=== PATIENT | female | born 1955 | race Caucasian/White ===

== ENCOUNTER 2016-10-03 12:28 | Observation (INO) | payer MEDICARE ==
[~2016-10-03] VITALS: Ht 162.6 cm; Wt 83.9 kg
[2016-10-03 14:00] LABS: ALBUMIN 3.5 g/dL (3.4-5.0); ANION GAP 13.6 mmol/L (8-16); BILIRUBIN - TOTAL 0.16 mg/dL (0.2-1.3); CALCIUM 9.1 mg/dL (8.5-10.1); CARBON DIOXIDE 26.5 mmol/L (21.0-32.0); POTASSIUM - SERUM 5.1 mmol/L (3.5-5.1); PROTEIN - SERUM 7.1 g/dL (6.4-8.2)
[2016-10-03 14:10] LABS: BASOPHILS 0.4 % (0.0-2.0); HEMOGLOBIN 13.8 g/dL (12-16); IMMATURE GRANULOCYTES 0.4 % (0-5); LYMPHOCYTES 31.4 % (15-50); MCH 31.5 pg (26.0-34.0); MCHC 32.1 g/dL (31.0-37.0); MCV 98.2 fL (80.0-100.0); MEAN PLATELET VOLUME 10.3 fL (7.4-10.4); MONOCYTES 7.4 % (2-11); NEUTROPHILS 58.4 % (40-80); PLATELET COUNT 264 10x3/uL (130-400); RBC 4.38 10x6/uL (4.00-5.40); WBC 11.3 10x3/uL (4.8-10.8)
[2016-10-03 20:00] VITALS: BP 124/58
[2016-10-03] MEDS ORDERED: TRAZODONE HCL150 MG PO (20:30)
[2016-10-03] MEDS ORDERED: GLUCOPHAGE1000 MG PO (20:31)
[2016-10-03] MEDS ORDERED: TEMAZEPAM30 MG PO (20:31)
[2016-10-03] MEDS ORDERED: NEURONTIN600 MG PO (20:31)
[2016-10-03] MEDS ORDERED: ULTRAM50 MG PO (20:32)
[2016-10-03] MEDS ORDERED: TANZEUM30 MG/0.5 SC (20:32)
[2016-10-03] MEDS ORDERED: ZOFRAN4 MG PO (20:32)
[2016-10-03 20:38] LABS: CKMB 0.7 U/L (0.0-3.6); CREATINE KINASE 51 UL (21-215); TROPONIN-I 0.031 ng/mL (0.000-0.060)
[2016-10-04] VITALS (7 sets, daily range): BP systolic 89–129; BP diastolic 58–91; Ht 162.6 cm; Wt 83.9 kg
--- NOTE | 2016-10-04 00:02 | NUR ---
RECEIVED PT VIA WHEELCHAIR FROM ER, AWAKE, ALERT, ORIENTED. PTS O2 SAT ON ARRIVAL WAS 86% ON ROOM AIR. I HAVE ADDED O2 VIA NC @ 2LPM WITH HUMIDITY. PT REQUESTED SOMETHING TO EAT, SHE STATED SHE HAS BEEN IN THE ER SINCE 10:00 AM, AND DID NOT ARRIVE TO ME UNTIL 20:15. TURKEY SANDWICH GIVEN, ICE WATER GIVEN, PT DENIES ANY NEEDS. CONTINUE TO MONITOR CLOSELY.
--- NOTE | 2016-10-04 01:27 | NUR ---
PT CALLED WANTING TO KNOW WHERE HER BEDTIME MEDICATIONS WERE, AND I EXPLAINED THAT THERE ARE NO CURRENT ORDERS, AND THAT ALSO SINCE PT IS HERE UNDER OBSERVATION STATUS, MEDICARE WOULD NOT PAY FOR HER MEDICATIONS. PT DENIES ANY NEEDS, BUT IS C/O CHRONIC BACK PAIN. I OFFERED PT AN ICE PACK IN WHICH SHE DENIED. CONTINUE TO MONITOR CLOSELY.
[2016-10-04 02:44] LABS: CKMB 0.6 U/L (0.0-3.6); CREATINE KINASE 55 UL (21-215)
[2016-10-04 08:04] LABS: CKMB 0.6 U/L (0.0-3.6); CREATINE KINASE 65 UL (21-215); TROPONIN-I 0.052 ng/mL (0.000-0.060)
--- NOTE | 2016-10-04 13:00 | NUR ---
ALERT AND ORIENTED X4. OOB WITH PHYSICAL THERAPY. AMBULATES TO DOOR AND BECOMES LITE HEADED. PT ASSIST BACK TO BED. VITALS STABLE. INSTRUCT TO CALL FOR HELP TO PREVENT FALLING. SINUS RHYTHM ON TELEMETRY. CONTINUE PLAN OF CARE. BED LOCKED AND LOW. CALL LIGHT IN REACH. TWO SIDERAILS UP.
[2016-10-04 14:46] LABS: CKMB 0.4 U/L (0.0-3.6); CREATINE KINASE 63 UL (21-215); TROPONIN-I 0.029 ng/mL (0.000-0.060)
--- NOTE | 2016-10-04 17:57 | NUR ---
ALERT AND ORIENTED X4. RESTING IN BED. FAMILY AT BEDSIDE. CONTINUE PAIN MANAGEMENT ORDERED. DENIES SOB. SINUS RHYTHM ON TELEMETRY. NO CHANGE. CONTINUE PLAN OF CARE AND SAFETY PRECAUTIONS. PREPAIR SHIFT CHANGE REPORT.
[2016-10-05] VITALS: BP 127/66
--- NOTE | 2016-10-05 01:08 | NUR ---
PT LYING ON HER LEFT SIDE, RESPIRATIONS EVEN AND UNLABORED. DAUGHTER AT BEDSIDE. HOB 20 DEGREES. CONTINUE TO MONITOR CLOSELY.
[2016-10-05 04:00] VITALS: BP 102/68
[2016-10-05 06:33] LABS: BASOPHILS 0.1 % (0.0-2.0); EOSINOPHILS 3.2 % (0-7); IMMATURE GRANULOCYTES 0.3 % (0-5); LYMPHOCYTES 34.2 % (15-50); MCH 31.4 pg (26.0-34.0); MCHC 33.3 g/dL (31.0-37.0); MEAN PLATELET VOLUME 10.2 fL (7.4-10.4); MONOCYTES 9.3 % (2-11); NEUTROPHILS 52.9 % (40-80); PLATELET COUNT 289 10x3/uL (130-400); RBC 4.78 10x6/uL (4.00-5.40); RDW 12.6 % (11.5-14.5); WBC 9.1 10x3/uL (4.8-10.8)
--- NOTE | 2016-10-05 06:43 | NUR ---
PT AWAKE, ALERT, ORIENTED, DENIES ANY NEEDS. CONTINUE TO MONITOR CLOSELY.
[2016-10-05 06:47] LABS: MCV 94.1 fL (80.0-100.0)
[2016-10-05 06:53] LABS: ANION GAP 14.4 mmol/L (8-16); CALCIUM 9.2 mg/dL (8.5-10.1); CARBON DIOXIDE 27.6 mmol/L (21.0-32.0); CREATININE - SERUM 0.9 mg/dL (0.6-1.3)
[2016-10-05 07:48] VITALS: BP 108/61
[2016-10-05 11:35] VITALS: BP 125/62
--- NOTE | 2016-10-05 13:07 | NUR ---
INTRODUCED SELF TO PT, PT STATES NO NEW NEEDS AT THIS TIME, WILL CONTINUE TO MONITOR, CALL LIGHT WITHIN REACH.
--- NOTE | 2016-10-05 13:19 | NUR ---
PADILLA CALLED PER DR ALVARADO, STATED PT WILL BE D/C LATER TODAY. INFORMED PT AND PT FAMILY MEMBER, WILL CONTINUE TO MONITOR, CALL LIGHT WITHIN REACH.
[2016-10-05] MEDS ORDERED: IPRAT-ALBUT 0.5-3 ML UPD (13:33)
[2016-10-05] MEDS ORDERED: FLORAJEN3 CAPS460 MG PO (13:34)
[2016-10-05] MEDS ORDERED: OMNICEF300 MG PO (13:35)
--- NOTE | 2016-10-05 14:13 | NUR ---
PT SITTING UP IN BED, VISITING WITH FAMILY, PT STATES NO NEW NEEDS AT THIS TIME, WILL CONTINUE TO MONITOR, CALL LIGHT WITHIN REACH.
--- NOTE | 2016-10-05 14:56 | NUR ---
Patient Name: SANA FRANCISCO Admission Status: ER Accout number: [id number] Admission Date: 10-03-2016 : 1955 Admission Diagnosis: Attending: ANA LAURA Current LOS: 2 Anticipated DC Date: 10-05-2016 Planned Disposition: Home Primary Insurance: [facility] Discharge Planning Comments: * Is the patient Alert and Oriented? Yes 0 * How many steps to enter\exit or inside your home? 3 0 * PCP DR. VELARDE 0 * Pharmacy [facility] 0 * Preadmission Environment Home with Family 0 * ADLs Independent 0 * Equipment Glucometer Walker 0 * Other Equipment [facility] - MEDICAL EQUIPMENT PROVIDER PREFERENCE 0 * List name and contact numbers for known caregivers / representatives who currently or will assist patient after discharge: TONYA FRANCISCO, SPOUSE, 0 * Community resources currently utilized None 0 * Please name any agencies selected above. NONE 0 * Additional services required to return to the preadmission environment? No 0 * Can the patient safely return to the preadmission environment? Yes 0 * Has this patient been hospitalized within the prior 30 days at any hospital? No 0 CM RECEIVED ORDER FOR NEBULIZER, MET WITH PT AND SPOUSE IN ROOM TO DISCUSS DISCHARGE PLANNING AND NEEDS. PT REPORTS LIVING AT HOME INDEPENDENTLY WITH HER SPOUSE. PT HAS WALKER AND GLUCOMETER, PROVIDED BY [facility]. PT HAS NO OUTSIDE SERVICES ASSISTING IN THE HOME. CM DISCUSSED AVAILABILITY OF HOME HEALTH, REHAB SERVICES AND MEDICAL EQUIPMENT. PT REPORTS NEEDING NEBULIZER, WOULD LIKE TO PICK IT UP AT [facility]. PT'S SPOUSE IS HERE TO PICK PT UP FOR DISCHARGE HOME. AFTER OBTAINING SIGNED PRESCRIPTION FOR NEBULIZER, CM CALLED [facility], , SPOKE TO FERMIN, WHO WILL PROCESS ORDER AND CONTACT PT / CM WITH ANY COPAY INFORMATION. CM FAXED REFERRAL TO [facility] AT [phone]. PT NOTIFIED, NO FURHTER DISCHARGE NEEDS IDENTIFIED. Eyeletter: Geraldo Marie
--- NOTE | 2016-10-05 15:10 | NUR ---
PT REQUESTED A SNACK, MALACHI GIVEN, NO NEW NEEDS AT THIS TIME, CALL LIGHT WITHIN REACH.
--- NOTE | 2016-10-05 15:37 | NUR ---
Patient Name: SANA FRANCISCO Encounter No: [id number] : 1955 Primary Insurance: [facility] Anticipated DC Date: 10-05-2016 Planned Disposition: Home DCP follow-up note: CM RECEIVED CALL FROM [facility], , SPOKE TO FERMIN, WHO REPORTS BEING OUT OF NETWORK FOR INSURANCE WITH 50% COPAY. CM SPOKE TO PT IN ROOM, PT WOULD LIKE IN NETWORK PROVIDER; CM CALLED [facility], , SPOKE TO MURPHY WHO REPORTS BEING IN NETWORK. CM NOTIFIED PT WHO WANTS TO USE [facility] AND WILL SUPERVISOR CHEMICAL THE NEBULIZER THERE. CM PROVIDED STORE NAME, ADDRESS, PHONE NUMBER AND BUSINESS HOURS. CM CALLED [facility], , SPOKE TO MUNIRA AND PROVIDED REFERRAL INFORMATION FOR PT SUPERVISOR CHEMICAL. CM FAXED REFERRAL TO [facility] AT [phone]. PT NOTIFIED, NO FURHTER DISCHARGE NEEDS IDENTIFIED. Mesh Man: Geraldo Marie
--- NOTE | 2016-10-05 15:43 | NUR ---
PT D/C, ESCORTED VIA WHEELCHAIR, FAMILY AT SIDE.
--- NOTE | 2016-10-12 13:16 | EC ---
PATIENT:SANA FRANCISCO DATE OF SERVICE: 10/03/16 SEX: F MEDICAL RECORD: [id number] DATE OF : [birth year] LOCATION:D. D.211 AGE OF PATIENT: 61 ADMISSION DATE: 10/03/16 REFERRING PHYSICIAN: INTERPRETING PHYSICIAN: COLBY PUENTES M.D. ECHOCARDIOGRAM REPORT ECHO CHARGES 4 ECHO COMPLETE CLINICAL DIAGNOSIS: CHF ECHOCARDIOGRAPHIC MEASUREMENTS (adult normal given) AC root (d.<3.7cm) 3.9 LV Septum d (<1.2 cm> 1.0 Valve Excursion 2.0 LV Septum (systole) 1.3 Left Atria (s.<4.0cm> 3.9 LVPW d(<1.2cm) 1.3 RV (d.<2.3cm) 3.9 LVPW (sytole) 1.4 LV diastole(<5.6CM) 4.2 MV E-F(>70mm/sec) LV systole 2.2 LVOT Diameter 1.8 MV exc.(>10mm) 1.1 Est.ejection fraction (50-75%) Pericardial Effusion N DOPPLER: LVIT A 133 E 83.0 LA RVSP 18 LVOT 83 AOP1/2T Asc. Ao 111 RVOT 76 RA PA 97 AV Gradient Peak 4.94 AV Mean 2.44 AV Area 2.6 MV Gradient Peak 8.12 MV Mean 2.92 MV Area COMMENTS: Mold Builder: Leda MARION [employer] Occupational Therapist:Leda Puentes TAPE# PACS DATE OF SERVICE: 10/04/2016 REFERRING PHYSICIAN: Jane Simmons MD. INDICATION: CHF. DESCRIPTION: Left ventricle is normal size and function. No wall motion is seen. Estimated ejection is 60%. Mitral valve is structurally normal. There is mild regurgitation noted. Left atrium is normal in size. The aortic valve is trileaflet. There is no stenosis or regurgitation seen. Right ventricle is ECHOCARDIOGRAM REPORT [id number] SANA FRANCISCO mildly dilated. Tricuspid valve is normal. There is trivial regurgitation seen. Right atrium is normal size. There is no pericardial effusion noted. IMPRESSION: 1. Normal left ventricular size and function, ejection fraction 60%. 2. Mild mitral regurgitation. 3. Trivial tricuspid regurgitation. TRANSINT:[id number] Voice Confirmation ID: [id number] DOCUMENT ID: [id number] COLBY PUENTES M.D. at 1316 CC: [id number] DICTATION DATE: 10/04/16 1610 COACH OPERATOR: 10/04/16 2313 DIS IN 10/05/16 [place] [id number] [place] [id number]
== END 2016-10-05 16:25 | disposition home or self-care (01) ==
LOC: D.ER 12:28 → D.M2 19:09 → OBSVTIME 19:09 → D.M2 10-05 16:25
PROVIDERS: Emergency Medicine; ADMIT Family Medicine
DX: R53.1 Weakness (principal); J44.9 Chronic obstructive pulmonary disease, unspecified; J18.9 Pneumonia, unspecified organism; E11.40 Type 2 diabetes mellitus with diabetic neuropathy, unspecified; R42 Dizziness and giddiness; J98.11 Atelectasis; J01.00 Acute maxillary sinusitis, unspecified; G47.33 Obstructive sleep apnea (adult) (pediatric); I08.1 Rheumatic disorders of both mitral and tricuspid valves; R79.89 Other specified abnormal findings of blood chemistry; I73.9 Peripheral vascular disease, unspecified; F17.203 Nicotine dependence unspecified, with withdrawal

== ENCOUNTER → 2016-12-20 19:29 | Outpatient (CLI) | payer MEDICARE ==
[2016-10-04 12:29] VITALS: BMI 31.7
[~2016-12-20 19:29] MED LIST: FLORAJEN3 CAPS460 MG PO; GLUCOPHAGE1000 MG PO; IPRAT-ALBUT 0.5-3 ML UPD; NEURONTIN600 MG PO; OMNICEF300 MG PO; TANZEUM30 MG/0.5 SC; TEMAZEPAM30 MG PO; TRAZODONE HCL150 MG PO; ULTRAM50 MG PO; ZOFRAN4 MG PO
== END | disposition home or self-care (01) ==
LOC: D.SLEEP 19:29
DX: G47.36 Sleep related hypoventilation in conditions classified elsewhere (principal)

== ENCOUNTER → 2017-07-05 14:52 | Outpatient (CLI) | payer MEDICARE ==
[2016-10-04 12:29] VITALS: BMI 31.7
== END | disposition home or self-care (01) ==
LOC: D.MRI 14:52
DX: M51.9 Unspecified thoracic, thoracolumbar and lumbosacral intervertebral disc disorder (principal)

== ENCOUNTER → 2017-08-11 16:40 | Outpatient (CLI) | payer MEDICARE ==
[2016-10-04 12:29] VITALS: BMI 31.7
== END | disposition home or self-care (01) ==
LOC: D.MRI 08-08 13:00
DX: I63.9 Cerebral infarction, unspecified (principal)

== ENCOUNTER 2018-09-16 19:27 | Inpatient (IN) | payer MEDICARE ==
[~2018-09-16] VITALS: Ht 162.6 cm; Wt 70.1 kg
--- NOTE | 2018-09-16 19:31 | NUR ---
NS BOLUS PER EMS COMPLETED UPON ARRIVAL
--- NOTE | 2018-09-16 20:10 | NUR ---
MULTIPLE IV ATEMPTS WERE TRIED FOR IV ACCESS WITHOUT SUCCESS.
[2018-09-16] MEDS ORDERED: BASAGLAR K100 UNIT/1 SC (20:22)
[2018-09-16] MEDS ORDERED: SINGULAIR10 MG (20:22)
[2018-09-16] MEDS ORDERED: XANAX XR0.5 MG PO (20:23)
[2018-09-16 20:24] VITALS: BP 121/63
[2018-09-16 20:42] LABS: HEMATOCRIT 40.4 % (36.0-48.0); HEMOGLOBIN 13.7 g/dL (12-16); MCH 29.7 pg (26.0-34.0); MCHC 33.9 g/dL (31.0-37.0); MCV 87.4 fL (80.0-100.0); MEAN PLATELET VOLUME 11.3 fL (7.4-10.4); PLATELET COUNT 286 10x3/uL (130-400); RBC 4.62 10x6/uL (4.00-5.40); RDW 13.4 % (11.5-14.5); WBC 18.5 10x3/uL (4.8-10.8)
[2018-09-16 20:51] LABS: KETONE - SERUM MODERATE mg/dL (NEGATIVE)
[2018-09-16 21:11] LABS: ALBUMIN 2.3 g/dL (3.4-5.0); ALKALINE PHOSPHATASE 130 U/L (46-116); ALT (SGPT) 14 U/L (10-68); AMYLASE - SERUM 2 U/L (25-115); BILIRUBIN - TOTAL 0.45 mg/dL (0.2-1.3); CALCIUM 9.2 mg/dL (8.5-10.1); CHLORIDE - SERUM 89 mmol/L (98-107); CKMB 4.4 U/L (0.0-3.6); CREATINE KINASE 68 UL (21-215); CREATININE - SERUM 1.8 mg/dL (0.6-1.3); POTASSIUM - SERUM 4.4 mmol/L (3.5-5.1); PROTEIN - SERUM 7.2 g/dL (6.4-8.2); SODIUM 125 mmol/L (136-145); UREA NITROGEN 44 mg/dL (7-18); eGFR NON AFRICAN AMERICAN 30 mL/min (90-120)
[2018-09-16 21:13] LABS: LIPASE 48 U/L (73-393)
[2018-09-16 21:15] LABS: LYMPHOCYTES 2 % (15-50); MONOCYTES 1 % (2-11); NEUTROPHILS 95 % (40-80); PLATELET ESTIMATE NORMAL; ROULEAUX OCC; TEAR DROP CELLS OCC
[2018-09-16 21:18] LABS: CALC OSMOLALITY 294 mosm/kg (275-300); CARBON DIOXIDE 7.2 mmol/L (21.0-32.0); GLUCOSE 670 mg/dL (74-106)
[2018-09-16 21:19] LABS: TROPONIN-I 0.452 ng/mL (0.000-0.060)
[2018-09-16 22:38] VITALS: BP 116/50
[2018-09-17] VITALS (85 sets, daily range): BP systolic 70–142; BP diastolic 39–91; Ht 162.6 cm; Wt 70.1 kg
[2018-09-17 00:10] LABS: AMORPHOUS SEDIMENT >1+ /lpf (NONE SEEN); APPEARANCE HAZY (CLEAR); BACTERIA FEW /hpf (NONE SEEN); BILIRUBIN NEGATIVE (NEGATIVE); COLOR YELLOW (YELLOW); EPITHELIAL CELLS OCC /hpf (0-5); GLUCOSE 1000 mg/dL (NEGATIVE); GRANULAR CAST OCC /lpf (NONE SEEN); HYALINE CAST OCC /lpf (NONE SEEN); KETONE LARGE mg/dL (NEGATIVE); NITRITE NEGATIVE (NEGATIVE); PROTEIN TRACE mg/dL (NEGATIVE); RED CELLS - URINE OCC /hpf (0-5); SPECIFIC GRAVITY 1.015 (1.005-1.020); UROBILINOGEN NORMAL (NORMAL); WHITE CELLS - URINE OCC /hpf (0-5)
--- NOTE | 2018-09-17 00:11 | NUR ---
PATIENT ARRIVED TO UNIT VIA STRETCHER, ACCOMPANIED BY INDEPENDENT LIVING SPECIALIST. WAKES UP TO VERBAL STIMULI. FOLLOWING COMMANDS. ALERT AND ORIENTED X4. PPP. BP 87/58, PATIENT STATES "MY BLOOD PRESSURE IS ALWAYS LOW, IT IS TYPICALLY IN THE 70'S, MY DOCTOR IS AWARE" NS INITIATED AT 200 MLS/HR, WILL CONTINUE TO MONITOR. HR 117, SINUS TACHYCARDIA. ORAL TEMPERATURE 98.6. RR 22. 4 L O2 VIA NC. O2 SATURATION 98%. INSULING DRIP INFUSING AT 14.6 MLS/HR, WILL TITRATE PER PROTOCOL. SEE FLOW SHEET FOR COMPLETE ASSESSMENT. WILL CONTINUE TO MONITOR.
--- NOTE | 2018-09-17 01:02 | NUR ---
LAB PERSONNEL AT BEDSIDE FOR BLOOD DRAW
--- NOTE | 2018-09-17 03:08 | NUR ---
REASSESSMENT COMPLETED PER FLOW SHEET, SEE FOR DETAILS.
--- NOTE | 2018-09-17 03:09 | NUR ---
BP 70/39. MAP 49. HR 117. DR. MARIE PAGED, WILL WAIT FOR CALL BACK.
--- NOTE | 2018-09-17 03:11 | NUR ---
DR. MARIE RETURNED CALL, UPDATE GIVEN, VITAL SIGNS REVIEWED, ORDERS RECEIVED TO START LEVOPHED.
--- NOTE | 2018-09-17 03:24 | NUR ---
BP REASSESSED, 76/48, LEVOPHED DRIP INITIATED PER DR. MARIE'S ORDERS. HR 113. WILL CONTINUE TO MONITOR AND TITRATE PER DOCTOR'S ORDERS, SEE FLOW SHEET FOR DRIP RATES.
[2018-09-17 03:52] LABS: CKMB 3.8 U/L (0.0-3.6)
[2018-09-17 03:55] LABS: CREATINE KINASE 293 UL (21-215)
[2018-09-17 03:56] LABS: TROPONIN-I 0.313 ng/mL (0.000-0.060)
--- NOTE | 2018-09-17 05:00 | NUR ---
DENIES NEEDS. WILL CONTINUE TO MONITOR.
--- NOTE | 2018-09-17 07:15 | NUR ---
SHIFT REPORT RECEIVED. PT IN BED. LETHARGIC BUT AROUSES TO VOICE. ORIENTED X 4. ASKING FOR WATER. HAS LUQ MIDLINE WITH NS AT 200ML/HR, LEVOPHED AT 27MCG/MIN. INSULIN DRIP CURRENTLY AT 4.8ML/HR. BLOOD GLUCOSE AT THIS TIME 130. WILL REVIEW PROTOCOL AND TITRATE INSULING ACCORDINGLY. HAS L-HAND PIV SL. SHEA IN PLACE WITH YELLOW URINE NOTED. SCD'S CURRENTLY OFF. PT REFUSES SCD'S AT THIS TIME. ON 4L OF O2 VIA NC. SHIFT ASSESSMENT COMPLETED. SAFETY MEASURES IN PLACE. WILL CONTINUE TO MONITOR.
[2018-09-17 07:46] LABS: CALCIUM 9.2 mg/dL (8.5-10.1)
[2018-09-17 07:48] LABS: ANION GAP 19.9 mmol/L (8-16); CARBON DIOXIDE 17.7 mmol/L (21.0-32.0); CREATININE - SERUM 1.2 mg/dL (0.6-1.3); POTASSIUM - SERUM 3.6 mmol/L (3.5-5.1)
--- NOTE | 2018-09-17 08:38 | NUR ---
LEVOPHED DRIP DECREASED TO 25MCG/MIN AT THIS TIME. BP 119/80. WILL CONTINUE TO WEAN TOLERATED.
[2018-09-17 08:42] LABS: HEMATOCRIT 40.6 % (36.0-48.0); HEMOGLOBIN 12.8 g/dL (12-16); MCHC 31.5 g/dL (31.0-37.0); MCV 82.5 fL (80.0-100.0); MEAN PLATELET VOLUME 11.4 fL (7.4-10.4); PLATELET COUNT 177 10x3/uL (130-400); RBC 4.92 10x6/uL (4.00-5.40); RDW 13.1 % (11.5-14.5); WBC 21.9 10x3/uL (4.8-10.8)
[2018-09-17 09:00] LABS: CKMB 3.4 U/L (0.0-3.6); CREATINE KINASE 78 UL (21-215)
[2018-09-17 09:01] LABS: TROPONIN-I 0.308 ng/mL (0.000-0.060)
--- NOTE | 2018-09-17 09:04 | NUR ---
LEVOPHED DRIP DECREASED TO 20MCG/MIN. BP 116/77.
[2018-09-17 09:09] LABS: MAGNESIUM - SERUM 1.6 mg/dL (1.8-2.4)
[2018-09-17 09:14] LABS: LYMPHOCYTES 7 % (15-50); MONOCYTES 8 % (2-11); NEUTROPHILS 49 % (40-80); PLATELET ESTIMATE NORMAL; PLATELET MORPHOLOGY PLT CLUMPS PRESENT; ROULEAUX OCC; TOXIC GRANULATION OCC
--- NOTE | 2018-09-17 09:58 | NUR ---
BP 133/86. LEVOPHED DRIP DECREASED TO 15MCG/MIN. WILL CONTINUE TO MONITOR.
--- NOTE | 2018-09-17 10:25 | NUR ---
CALL RECEIVED FROM PT'S DAUGHTER. NO PASSCODE SET UP. ASKED FOR FULL NAME AND DATE OF . SHE COULD NOT PROVIDE ACCURATED DATE OF . EXPLAINED TO HER THAT WITHOUT A PASS CODE WE CANNOT GIVE PT INFORMATION OVER THE PHONE. SHE IS ON HER WAY HERE FROM [facility] AND WILL SET UP A PASS CODE WHEN SHE GET'S HERE.
--- NOTE | 2018-09-17 11:11 | NUR ---
BLOOD GLUCOSE 69 AT THIS TIME. INSULIN DRIP PAUSED FOR 15MIN. WILL RE-CHECK GLUCOSE.
--- NOTE | 2018-09-17 11:30 | NUR ---
BLOOD GLUCOSE [address] CONNORS NOTIFIED. HE ORDER PT TO EAT. JELLO PROVIDED AT THIS TIME. WILL CONTINUE TO MONITOR.
--- NOTE | 2018-09-17 11:37 | NUR ---
CARDIOLOGY OFFICE NOTIFIED OF CONSULT. SPOKE WITH TRESA.
[2018-09-17 12:50] LABS: ANION GAP 16.7 mmol/L (8-16); CARBON DIOXIDE 16.7 mmol/L (21.0-32.0); CREATININE - SERUM 1.2 mg/dL (0.6-1.3); MAGNESIUM - SERUM 1.6 mg/dL (1.8-2.4); POTASSIUM - SERUM 3.4 mmol/L (3.5-5.1)
--- NOTE | 2018-09-17 12:50 | NUR ---
FAMILY AT BEDSIDE. PASS CODE SET UP "KENDALL."
[2018-09-17 12:54] LABS: CKMB 2.4 U/L (0.0-3.6); CREATINE KINASE 51 UL (21-215); TROPONIN-I 0.319 ng/mL (0.000-0.060)
--- NOTE | 2018-09-17 14:48 | NUR ---
LEVOPHED DRIP DECREASED TO 5MCG/MIN. WILL CONTINUE TO WEAN TOLERATED.
--- NOTE | 2018-09-17 15:44 | NUR ---
BP 71/46 MAP 56. LEVOPHED WAS AT 5MCG/MIN. INCREASED TO 10MCG/MIN. WILL CONTINUE TO MONITOR.
[2018-09-17 16:02] LABS: ANION GAP 16.4 mmol/L (8-16); CALCIUM 8.5 mg/dL (8.5-10.1); CREATININE - SERUM 1.2 mg/dL (0.6-1.3); MAGNESIUM - SERUM 1.5 mg/dL (1.8-2.4); POTASSIUM - SERUM 3.4 mmol/L (3.5-5.1)
[2018-09-17 16:14] LABS: CKMB 2.2 U/L (0.0-3.6); CREATINE KINASE 52 UL (21-215)
[2018-09-17 16:15] LABS: TROPONIN-I 0.364 ng/mL (0.000-0.060)
--- NOTE | 2018-09-17 16:20 | NUR ---
LEVOPHED INCREASED TO 15MCG/MIN. SBP IN 80S. WILL CONTINUE TO MONITOR.
--- NOTE | 2018-09-17 17:40 | NUR ---
DR. CONNORS NOTIFIED THAT PT'S SBP CONTINUES TO FALL INTO 80S. ON LEVOPHED AT 15MCG/MIN. DR. CONNORS SAID TO KEEP HER ON LEVOPHED TONIGHT AND NOT TITRATE HER DOWN AT THIS TIME. WILL COTNINUE TO MONITOR.
--- NOTE | 2018-09-17 19:41 | NUR ---
REPORT RECEIVED, SHIFT ASSESSMENT COMPLETED PER FLOW SHEET. AROUSES TO VOICE. FOLLOWING COMMANDS. MOVES ALL EXTREMITIES. LT UPPER ARM MIDLINE INFUSING NS AT 200 MLS/HR, LEVOPHED AT 15 MCG/MIN, AND INSULIN DRIP AT 5 MLS/HR. WILL CONTINUE TO TITRATE LEVOPHED PER DOCTOR'S ORDERS. WILL CONTINUE TO TITRATE INSULIN DRIP PER PROTOCOL. DENIES PAIN OR NEEDS. CALL LIGHT WITHIN REACH. WILL CONTINUE TO MONITOR. SEE FLOW SHEET FOR COMPLETE ASSESSMENT.
[2018-09-17 20:34] LABS: CKMB 2.2 U/L (0.0-3.6); CREATINE KINASE 42 UL (21-215)
[2018-09-17 20:46] LABS: TROPONIN-I 0.251 ng/mL (0.000-0.060)
--- NOTE | 2018-09-17 21:40 | NUR ---
SIGNIFICANT OTHER AT BEDSIDE. UPDATE GIVEN. QUESTIONS ANSWERED.
--- NOTE | 2018-09-17 23:38 | NUR ---
REASSESSMENT COMPLETED PER FLOW SHEET, SEE FOR DETAILS. DENIES PAIN OR NEEDS. NO ACUTE DISTRESS NOTED. CALL LIGHT AND WING COVERER BUTTON WITHIN REACH. WILL CONTINUE TO MONITOR.
[2018-09-18] VITALS (93 sets, daily range): BP systolic 72–138; BP diastolic 40–94
--- NOTE | 2018-09-18 01:00 | NUR ---
DENIES PAIN OR NEEDS. CALL LIGHT AND OIL FILTERS INSPECTOR BUTTON WITHIN REACH. WILL CONTINUE TO MONITOR.
[2018-09-18 01:17] LABS: CKMB 2.9 U/L (0.0-3.6); CREATINE KINASE 56 UL (21-215)
[2018-09-18 01:28] LABS: TROPONIN-I 0.406 ng/mL (0.000-0.060)
--- NOTE | 2018-09-18 03:38 | NUR ---
REASSESSMENT COMPLETED PER FLOW SHEET, SEE FOR DETAILS. NO ACUTE DISTRESS NOTED. DENIES NEEDS. WILL CONTINUE TO MONITOR.
--- NOTE | 2018-09-18 05:16 | NUR ---
SCHEDULED MEDS GIVEN. DENIES NEEDS. CALL LIGHT WITHIN REACH.
[2018-09-18 06:11] LABS: HEMATOCRIT 32.5 % (36.0-48.0); HEMOGLOBIN 11.5 g/dL (12-16); MCH 29.4 pg (26.0-34.0); MCHC 35.4 g/dL (31.0-37.0); MCV 83.1 fL (80.0-100.0); MEAN PLATELET VOLUME 10.3 fL (7.4-10.4); PLATELET COUNT 201 10x3/uL (130-400); RDW 13.8 % (11.5-14.5); WBC 18.3 10x3/uL (4.8-10.8)
[2018-09-18 06:26] LABS: ANION GAP 16.8 mmol/L (8-16); CALCIUM 8.3 mg/dL (8.5-10.1); CARBON DIOXIDE 15.9 mmol/L (21.0-32.0); CREATININE - SERUM 1.1 mg/dL (0.6-1.3); POTASSIUM - SERUM 3.7 mmol/L (3.5-5.1)
[2018-09-18 06:28] LABS: LYMPHOCYTES 7 % (15-50); MONOCYTES 6 % (2-11); NEUTROPHILS 79 % (40-80); RBC 3.91 10x6/uL (4.00-5.40)
[2018-09-18 06:31] LABS: PLATELET ESTIMATE NORMAL; PLATELET MORPHOLOGY NORMAL PLT MORPH
--- NOTE | 2018-09-18 07:52 | NUR ---
0700 PT RECIEVED ALERT AND ORIENTED BUT SOMEWHAT LETHARGIC VSS ABLE TO DECREASE LEVO TO 12MCG, NS 200ML/HR AND INSULIN GTT PER PROTOCOL, O2 DECREASED FROM 4L TO 3L, PIV TO L HAND AND MIDLINE TO AIDE CABRALESEY DRAINING CLEAR YELLOW URINE [address] CONNORS TO CLARIFY DIET, AND TO GIVE PO MEDS, WILL HOLD GABAPENTIN FOR LETHARGY, START INTERMEDIATE SLIDING SCALE INSULIN
--- NOTE | 2018-09-18 09:00 | NUR ---
PATIENT VOMTTING. GAVE PATIENT ZOFRAN IV PER NOV ORDER. GAVE COLD WASHCLOTH TO FOREHEAD AND EMESIS BASIN. FAMILY AT BEDSIDE. WILL CONTINUE TO MONITOR CLOSELY.
--- NOTE | 2018-09-18 10:09 | MORECARE ---
CASE MANAGEMENT DISCHARGE SUMMARY PATIENT: SANA FRANCISCO UNIT: [id number] ADM DATE: 09/16/18 AGE: 63 : [birth year] SEX: F ROOM/BED: [facility] AUTHOR: KIM FRENCH PHYSICIAN: REFERRING PHYSICIAN: SHWETHA MARIE MD DATE OF SERVICE: 09/18/18 Discharge Plan Patient Name: SANA FRANCISCO [facility] [facility] 1955 Planned Disposition: Home Anticipated Discharge Date: Discharge Date: Expected LOS: Initial Reviewer: [email or web address] Initial Review Date: 09/18/2018 Generated: 09/18/18 11:09 am DCPIA - Discharge Planning Initial Assessment Updated by [email or web address]: Janna Leiva on 09/18/18 10:07 am * Is the patient Alert and Oriented? Yes * How many steps to enter\exit or inside your home? * PCP DR RODRIGUEZ * Pharmacy [facility] * Preadmission Environment Home Alone * ADLs Independent * Equipment Glucometer * List name and contact numbers for known caregivers / representatives who currently or will assist patient after discharge: WENDY LOPEZ - DAUGHTER- [phone] * Verbal permission to speak to the caregivers and representatives has been obtained from the patient. Yes * Community resources currently utilized None * Additional services required to return to the preadmission environment? No * Can the patient safely return to the preadmission environment? Yes * Has this patient been hospitalized within the prior 30 days at any hospital? No Patient Name: SANA FRANCISCO Page 85056 at 1009 All edits/amendments must be made on the electronic document DICTATION DATE: 09/18/18 1008 FIXTURE MAKER: CARLI 09/18/18 1008 RPT#: [id number] DC DATE: STATUS: ADM IN [facility] [address] [place] [address] END OF REPORT
--- NOTE | 2018-09-18 10:17 | MORECARE ---
CASE MANAGEMENT DISCHARGE SUMMARY PATIENT: SANA FRANCISCO UNIT: [id number] ADM DATE: 09/16/18 AGE: 63 : [birth year] SEX: F ROOM/BED: [facility] AUTHOR: GILLIAN,DOC PHYSICIAN: REFERRING PHYSICIAN: SHWETHA MARIE MD DATE OF SERVICE: 09/18/18 Discharge Plan Patient Name: SANA FRANCISCO Facility: [facility]:[place] : 1955 Planned Disposition: Home Anticipated Discharge Date: Discharge Date: Expected LOS: Initial Reviewer: [email or web address] Initial Review Date: 09/18/2018 Generated: 09/18/18 11:17 am Comments DCP- Discharge Planning Updated by [email or web address]: Janna Leiva on 09/18/18 9:[address] Patient Name: SANA FRANCISCO Admission Status: ER Accout number: [id number] Admission Date: 09-16-2018 : 1955 Admission Diagnosis: Attending: SHWETHA MARIE Current LOS: 2 Anticipated DC Date: Planned Disposition: Home Primary Insurance: [facility] [employer]UT[employer] Discharge Planning Comments: CM met with patient and daughter at bedside. Patient states she lives alone and is independent of ADL's. Daughter Wendy states that she has a friend that stays with her if Wendy isn't available to be there. Patient has a glucometer. Patient denies any home health services. Patient plans on returning to her home upon discharge. CM will continue to follow and assist as needed with discharge planning / needs. Medical Management Trainer: Janna Leiva DCPIA - Discharge Planning Initial Assessment Updated by [email or web address]: Janna Leiva on 09/18/18 10:07 am * Is the patient Alert and Oriented? Yes * How many steps to enter\exit or inside your home? * PCP DR RODRIGUEZ * Pharmacy [facility] * Preadmission Environment Home Alone * ADLs Independent * Equipment Glucometer * List name and contact numbers for known caregivers / representatives who currently or will assist patient after discharge: WENDY LOPEZ - DAUGHTER- [phone] * Verbal permission to speak to the caregivers and representatives has been obtained from the patient. Yes * Community resources currently utilized None * Additional services required to return to the preadmission environment? No * Can the patient safely return to the preadmission environment? Yes * Has this patient been hospitalized within the prior 30 days at any hospital? No Last DP export: 09/18/18 9:09 a Patient Name: SANA FRANCISCO Page 17984 at 1017 All edits/amendments must be made on the electronic document DICTATION DATE: 09/18/181016 GOLF TOURNAMENT CONSULTANT: CARLI 09/18/18 1017 RPT#: [id number] DC DATE: STATUS: ADM IN [facility] [address] [place] [address] END OF REPORT
--- NOTE | 2018-09-18 10:31 | NUR ---
0900 AM MEDS TAKEN WITHOUT DIFFICULTY 1000 LINENS CHANGED
--- NOTE | 2018-09-18 11:00 | NUR ---
RECIEVED REPORT ON PT AT THIS TIME. PT RESTING IN BED AT THIS TIME, RESPIRATIONS STEADY AND UNLABORED. AWAKENS EASILY WHEN SPOKEN TO. ABLE TO STATES QUESTIONS OR CONCERNS. NO ACUTE DISTRESS NOTED. WILL CONTINUE PLAN OF CARE.
--- NOTE | 2018-09-18 12:39 | NUR ---
UP IN BED EATING LUNCH AT THIS TIME. NO ACUTE DISTRESS NOTED. CALL LIGHT IN REACH. WILL CONTINUE PLAN OF CARE.
--- NOTE | 2018-09-18 13:29 | EC ---
PATIENT:SANA FRANCISCO DATE OF SERVICE: 09/16/18 SEX: F MEDICAL RECORD: [id number] DATE OF : [birth year] LOCATION:[place] [address] AGE OF PATIENT: 63 ADMISSION DATE: 09/16/18 REFERRING PHYSICIAN: INTERPRETING PHYSICIAN: AVRIL HERNANDEZ MD ECHOCARDIOGRAM REPORT ECHO CHARGES 4 ECHO COMPLETE Date: 09/18/18 CLINICAL DIAGNOSIS: DM/SOB ASSESS EF AND VALVES ECHOCARDIOGRAPHIC MEASUREMENTS (adult normal given) AC root (d.<3.7cm) 3.4 cm LV Septum d (<1.2 cm> 1.4 cm Valve Excursion 1.2 cm LV Septum (systole) 1.6 cm Left Atria (s.<4.0cm> 3.5 cm LVPW d(<1.2cm) 1.2 cm RV (d.<2.3cm) 3.6 cm LVPW (sytole) 1.5 cm LV diastole(<5.6CM) 4.6 cm MV E-F(>70mm/sec) cm LV systole 3.0 cm LVOT Diameter cm MV exc.(>10mm) 1.6 cm Est.ejection fraction (50-75%) % DOPPLER: LVIT cm/sec A 97.0 cm/sec E 74.0 cm/sec LA cm/sec RVSP 16 mmHg LVOT 81 cm/sec AOP1/2T m/s Asc. Ao 118 cm/sec RVOT 61 cm/sec RA cm/sec PA 119 cm/sec AV Gradient Peak 5.60 mmHg AV Mean 3.20 mmHg AV Area 2.3 cm MV Gradient Peak 4.49 mmHg MV Mean 1.79 mmHg MV Area cm COMMENTS: Digital Marketer: Leda MARION Photographic Reproduction Technician: 1 Dr. Hernandez TAPE# PACS Pericardial Effusion N DATE OF SERVICE: 09/18/2018 ECHOCARDIOGRAM DATE OF SERVICE: 09/18/2018 FINDINGS: 1. Left ventricular chamber size is within normal limits. Left ventricular systolic function is normal. Overall ejection fraction is estimated at 60%. 2. Left atrium, right atrium, and right ventricle chamber sizes are within ECHOCARDIOGRAM REPORT [id number] SANA FRANCISCO normal limits. 3. Valvular structures have normal structure and motion. 4. Doppler interrogation reveals no significant valvular insufficiency or stenosis. 5. No evidence of pericardial effusion or left ventricular thrombus. TRANSINT:[id number] Voice Confirmation ID: [id number] DOCUMENT ID: [id number] AVRIL HERNANDEZ MD at 1329 CC: [id number] DICTATION DATE: 09/18/18 1228 MEDICAL CENTER DIRECTOR: 09/18/18 1306 ADM IN [facility] [address] [place] [address]
--- NOTE | 2018-09-18 13:35 | NUR ---
PER DR BURKS CHANGE SCHEDULED KLONOPIN TO PRN.
--- NOTE | 2018-09-18 15:11 | NUR ---
LYING IN BED RESTING AT THIS TIME WITH EYES CLOSED. NO ACUTE DISTRESS NOTED. AWAKENS EASILY WHEN SPOKEN TO. PT REPOSITIONS SELF FREQUENTLY. CALL LIGHT IN REACH. WILL CONTINUE PLAN OF CARE.
--- NOTE | 2018-09-18 17:50 | NUR ---
TRANSFERRED TO REGULAR ICU AT THIS TIME VIA BED ACCOMPANIED BY HOSPITAL STAFF. TRANSFERRED WITH ALL PERSONAL ITEMS. NO ACUTE DISTRESS NOTED. NO FURTHER ACTIONS.
--- NOTE | 2018-09-18 17:58 | NUR ---
1755 PT TRANSFER INTO ROOM 2309 FROM ROOM CV04,REPORT RECIEVED FROM MEGAN PT IS AWAKE AND ALERT MIDLINE PIV IN LEFT UPPER ARM LEVOPHED INFUSING AT 11 MCG 20C/HR AND NS INFUSING AT 200 CC/HR... NS ON HEART MONITOR , BP IS LABILE AT THIS TIME.. PT REQUEST BEDPAN SOON SHE ARRIVED IN THE ICU, SHEA CATH IN PLACE FOR URINE COLLECTION..
--- NOTE | 2018-09-18 18:58 | NUR ---
1830 PT REQUEST BEDPAN AND HAD BM SOLID FIRM BROWN STOOL PT IS REQUESTING BATH BASIN AND RAZOR TO SHAVE HER CHIN.. 1845 PT DOING PERSONAL CARE BP REMAINS LABILE LEVOPHED CONTINUES TO INFUSE
--- NOTE | 2018-09-18 19:10 | NUR ---
REPORT RECIEVED FROM DAY SHIFT. PATIENT AWAKE AND ALERT. SITTING UP AND WATCHING TV. PATIENT DENIES ANY NEEDS OR PAIN. WILL CONTINUE WITH PLAN OF CARE.
--- NOTE | 2018-09-18 21:00 | NUR ---
CALLED TO PATIENTS ROOM. PATIENT COMPLAINS OF NAUSEA AND BEGINS VOMITTING. GAVE EMESIS BASIN AND COLD CLOTH. GAVE ZOFRAN IV PER NOV ORDER. FAMILY AT BEDSIDE. WILL CONTINUE TO MONITOR.
--- NOTE | 2018-09-18 21:50 | NUR ---
PATIENT LAYING IN BED WITH EYES CLOSED AND BREATHING EVENLY. WILL CONTINUE TO MONITOR. SRT UP X 2 BED IN LOW POSTION AND CALL LIGHT IN REACH.
[2018-09-19] VITALS (47 sets, daily range): BP systolic 71–156; BP diastolic 44–105
--- NOTE | 2018-09-19 02:49 | NUR ---
REPOSITIONED PATIENT FOR COMFORT. PATIENT UNCHANGED. WILL CONTINUE TO MONITOR.
[2018-09-19 08:13] LABS: BASOPHILS 0.8 % (0-2); EOSINOPHILS 0.2 % (0-7); HEMATOCRIT 32.7 % (36.0-48.0); HEMOGLOBIN 11.5 g/dL (12-16); IMMATURE GRANULOCYTES 6.1 % (0-5); LYMPHOCYTES 9.9 % (15-50); MCH 29.3 pg (26.0-34.0); MCHC 35.2 g/dL (31.0-37.0); MCV 83.4 fL (80.0-100.0); MEAN PLATELET VOLUME 9.9 fL (7.4-10.4); MONOCYTES 6.7 % (2-11); NEUTROPHILS 76.3 % (40-80); PLATELET COUNT 165 10x3/uL (130-400); RBC 3.92 10x6/uL (4.00-5.40); RDW 14.2 % (11.5-14.5)
[2018-09-19 08:17] LABS: ANION GAP 21.5 mmol/L (8-16); CALCIUM 8.3 mg/dL (8.5-10.1); CARBON DIOXIDE 14.6 mmol/L (21.0-32.0); CREATININE - SERUM 1.1 mg/dL (0.6-1.3)
[2018-09-19 08:19] LABS: POTASSIUM - SERUM 3.1 mmol/L (3.5-5.1)
[2018-09-19 08:25] LABS: WBC 12.9 10x3/uL (4.8-10.8)
--- NOTE | 2018-09-19 09:00 | NUR ---
PT ATE 100% BREAKFAST. RESTING COMFORTABLY. DAUGHTER CALLED GIVEN UPDATE. NEEDS MET. VSS WILL CONTINUE TO MONITOR
--- NOTE | 2018-09-19 09:16 | NUR ---
NUTRITION F/U PT NOW IN ICU, CURRENTLY SLEEPING. VERY LITTLE INTAKE BREAKFAST. WILL CONTINUE TO PROVIDE DIET, MONITOR PT PROGRESS. RD FOLLOWING
--- NOTE | 2018-09-19 09:45 | NUR ---
LEVOPHED OFF AT THIS TIME. BP 125/76
--- NOTE | 2018-09-19 11:16 | NUR ---
REASSESSMENT COMPLETE, NO CHANGES NOTED, PT RESTNG COMFORTABLY, VSS, CALL LIGHT IN REACH
--- NOTE | 2018-09-19 13:00 | NUR ---
RESTING COMFORTABLY AT THIS TIME, WILL CON'T TO MONITOR
--- NOTE | 2018-09-19 15:11 | NUR ---
DR. CONNORS AT BEDSIDE, UPDATE GIVEN, NEW ORDERS RECIEVED,
--- NOTE | 2018-09-19 16:20 | NUR ---
COMPLETE BB LINEN CHANGE. LARGE LIQUID BM NOTED. UP IN CHAIR AT THIS TIME. NEEDS MET. DENIES FURTHER NEEDS. WILL CONTINUE TO MONITOR
--- NOTE | 2018-09-19 17:40 | NUR ---
PT ATE 100% DINNER. UP IN CHAIR. DENIES NEEDS. FAMILY CALLED GIVEN UPDATE. WILL CONTINUE TO MONITO R
--- NOTE | 2018-09-19 19:10 | NUR ---
REPORT RECEIVED FROM DAY SHIFT. PATIENT SITTING UP IN BEDSIDE CHAIR. LEVOPHED WAS STOPPED THIS AM DUE TO INCREASED BP. CURRENTLY BP IS 68/35 MAP IS 50. RESTARTED LEVOPHED DRIP AT 3 MCG. BP98/66 MAP 75. PATIENT DENIES ANY NEEDS OR COMPLAINTS. CALL LIGHT IN REACH. WILL COTNINUE WITH PLAN OF CARE.
--- NOTE | 2018-09-19 23:00 | NUR ---
PATIENT STILL SITTING UP IN BEDSIDE CHAIR WATCHING TV. PATIENT UNCHANGED AND DENIES ANY NEEDS OR PAIN. RESSESMENT COMPLETED. WILL CONTINUE TO MONITOR AND CALL LIGHT IN REACH.
[2018-09-20] VITALS (83 sets, daily range): BP systolic 60–162; BP diastolic 36–104
--- NOTE | 2018-09-20 03:09 | NUR ---
PATIENT STILL RESTING WITH EYES CLOSED AND BREATHING EVENLY. VITALS UNCHANGED. WILL CONTINUE TO MONITOR. REASSESMENT COMPLETED.
[2018-09-20 05:22] LABS: HEMATOCRIT 31.8 % (36.0-48.0); MCH 28.7 pg (26.0-34.0); MCHC 34.6 g/dL (31.0-37.0); PLATELET COUNT 162 10x3/uL (130-400); RBC 3.83 10x6/uL (4.00-5.40); RDW 14.6 % (11.5-14.5)
[2018-09-20 05:23] LABS: WBC 9.2 10x3/uL (4.8-10.8)
[2018-09-20 05:24] LABS: CALCIUM 7.6 mg/dL (8.5-10.1); CREATININE - SERUM 1.3 mg/dL (0.6-1.3)
[2018-09-20 05:29] LABS: ANION GAP 11.8 mmol/L (8-16); POTASSIUM - SERUM 2.8 mmol/L (3.5-5.1)
[2018-09-20 05:43] LABS: LYMPHOCYTES 31 % (15-50); MONOCYTES 6 % (2-11); NEUTROPHILS 57 % (40-80); PLATELET ESTIMATE DECREASED
--- NOTE | 2018-09-20 05:51 | NUR ---
CRITICAL LOW K+ 2.8. GAVE KDUR 20 MEQ PO PER EP.
--- NOTE | 2018-09-20 06:45 | NUR ---
PATIENT AWAKE AND ALERT X 3. WATCHING TV. PATIENT STABLE AND UNCHANGED.
--- NOTE | 2018-09-20 08:36 | NUR ---
PATIENT UP IN CHAIR. EATING BREAKFAST. NO FURTHER NEEDS
--- NOTE | 2018-09-20 08:38 | NUR ---
TITRATED NONEPINEPHRINE TO 21 MCG BP 89/65 WILL CONTINUE TO MONITOR
--- NOTE | 2018-09-20 09:50 | NUR ---
PATIENT IN CHAIR ASLEEP. PULSE OX READING WAS NOT READING SO FIXED IT. NO NEEDS AT THIS TIME
--- NOTE | 2018-09-20 10:21 | NUR ---
PATIENT FELL ASLEEP IN CHAIR WATCHING TV. TOOK MEDS. WILL PUT REDRAW IN FOR K CHECK IN 4 HR
--- NOTE | 2018-09-20 11:05 | NUR ---
PATIENT RESTING IN CHAIR. NEW PARAMETERS FOR NOREPINEPHRINE. VS STABLE. 3 L OF OXYGEN. NO NEEDS AT THIS TIME
--- NOTE | 2018-09-20 12:25 | NUR ---
PATIENT IN ROOM. NOREPI REPLACED. WILL CONTINUE TO MONITOR AND TITRATE DOWN.
--- NOTE | 2018-09-20 13:24 | NUR ---
patient BACK IN BED RESTING. WILL CONTINUE TO MONITOR
--- NOTE | 2018-09-20 14:12 | NUR ---
PATIENT SLEEPING ON BACK. NO FURTHER NEEDS AT THIS TIME
--- NOTE | 2018-09-20 15:46 | NUR ---
PATIENT REQUESTS SHERTONNY AND AGUSTÍN. EDUCATED THAT SHE HAS TO BE CAREFUL BECAUSE THIS WILL CAUSE OUR BLOOD GLUCOSE TO BE HIGH. SHE KNOWS AND UNDERSTANDS. NO FURTHER NEEDS AT THIS TIME
--- NOTE | 2018-09-20 16:50 | NUR ---
IN ROOM. PATIENT REUESTS WATER. NO OTHER NEEDS
--- NOTE | 2018-09-20 18:16 | NUR ---
PATIENT RESTING. LIGHTS OFF. WILL RECHECK BLOOD GLUCOSE AT 1900. NO FURTHER NEEDS AT THIS TIME
--- NOTE | 2018-09-20 19:17 | NUR ---
REPORT RECEIVED, CARE ASSUMED. INITIAL ASSESSMENT COMPLETED, SEE FLOWSHEET. PHYSICAN PAGED REGARDING CONTINUED ELEVATED GLUCOSE READINGS. NO NEW ORDERS RECEIVED. LEVOPHED CONTINUES TO BE TITRATED DOWN. PT TOLERATING WELL. VSS. NO SIGNS OF ACUTE DISTRESS. WILL CONTINUE TO MONITOR.
--- NOTE | 2018-09-20 21:17 | NUR ---
PT WAS INCONTINENT OF STOOL. PT CLEANED UP AND COMPLETE BEDDING AND GOWN CHANGE PERFOMED. NO OTHER CHANGES NOTED AT THIS TIME. WILL CONTINUE TO MONITOR.
--- NOTE | 2018-09-20 22:30 | NUR ---
PT HAS HAD TWO MORE EPISODES OF STOOL INCONTINENCE. PT COMPLAINS OF NAUSEA AND PAIN. PRN MEDICATIONS GIVEN, SEE MAR. VS REMAIN STABLE. WILL CONTINUE TO MONITOR.
--- NOTE | 2018-09-20 23:14 | NUR ---
PT APPEARS TO BE SLEEPING AT THIS TIME. REASSESSMENT COMPLETED, SEE FLOWSHEET. NO SIGNS OF ACUTE DISTRESS. WILL CONTINUE TO MONITOR.
[2018-09-21] VITALS (15 sets, daily range): BP systolic 80–129; BP diastolic 43–83
--- NOTE | 2018-09-21 01:14 | NUR ---
PT IS LAYING IN BED WITH HER EYES CLOSED AT THIS TIME. NO SIGNS OF ACUTE DISTRESS. WILL CONTINUE TO MONITOR.
--- NOTE | 2018-09-21 03:15 | NUR ---
REASSESSMENT COMPLETED, SEE FLOWSHEET. PT HAD A MODERATE SIZED BM AND WAS CLEANED UP AND BEDDING CHANGED. NO SIGNS OF ACUTE DISTRESS. WILL CONTINUE TO MONITOR.
[2018-09-21 04:02] LABS: HEMATOCRIT 28.4 % (36.0-48.0); HEMOGLOBIN 9.7 g/dL (12-16); MCH 29.2 pg (26.0-34.0); MCHC 34.2 g/dL (31.0-37.0); MEAN PLATELET VOLUME 9.7 fL (7.4-10.4); RBC 3.32 10x6/uL (4.00-5.40); RDW 14.5 % (11.5-14.5); WBC 11.1 10x3/uL (4.8-10.8)
[2018-09-21 04:09] LABS: MCV 85.5 fL (80.0-100.0); PLATELET COUNT 127 10x3/uL (130-400)
[2018-09-21 04:15] LABS: ANION GAP 13.6 mmol/L (8-16); CALCIUM 7.3 mg/dL (8.5-10.1); CARBON DIOXIDE 26.1 mmol/L (21.0-32.0); POTASSIUM - SERUM 3.7 mmol/L (3.5-5.1)
[2018-09-21 04:59] LABS: EOSINOPHILS 1 % (0-7); LYMPHOCYTES 8 % (15-50); MONOCYTES 3 % (2-11); NEUTROPHILS 51 % (40-80)
[2018-09-21 05:00] LABS: PLATELET ESTIMATE NORMAL; PLATELET MORPHOLOGY PLT CLUMPS PRESENT
--- NOTE | 2018-09-21 05:15 | NUR ---
PT HAD ANOTHER MODERATE SIZED BM, PT WAS CLEANED UP AND BEDDING CHANGED. NO SIGNS OF ACUTE DISTRESS. WILL CONTINUE TO MONITOR.
--- NOTE | 2018-09-21 08:38 | NUR ---
assisted pt oob to chair for breakfast. all monitoring equipment attached. call light in reach.
--- NOTE | 2018-09-21 09:36 | NUR ---
NUTRITION F/U CHART REVIEWED. NURSING REPORTS PT WITH GOOD INTAKE BREAKFAST. WILL CONTINUE TO PROVIDE DIABETIC DIET, MONITOR PO INTAKE. RD FOLLOWING
[2018-09-21 11:23] LABS: AEROBE ID Final report (())
--- NOTE | 2018-09-21 15:30 | NUR ---
PT RECIEVED TO RM 2210 ALERT AND ORIENTED. NO ACUTE DISTRESS NOTED. O2 @ 3L NC IN PLACE. SALINE LOC TO LEFT HAND AND PICC LINE TO LEFT UPPER ARM INTACT, EASILY FLUSH WITHOUT REDNESS OR EDEMA. ORIENTED TO BED, ROOM AND CL. DENIES ANY QUESTIONS AT THIS TIME. CL WITHIN REACH. ENCOURAGED TO CALL WITH NEEDS. WILL CONTINUE TO MONITOR.
[2018-09-22 04:00] VITALS: BP 81/43
--- NOTE | 2018-09-22 06:39 | NUR ---
PT IN BED RESTING QUIETLY WITH EYES CLOSED. VITAL SIGNS STABLE AND AFEBRILE. NO VISUAL CUES OF DISTRESS NOTED. WILL CONTINUE TO MONITOR.
[2018-09-22 06:40] LABS: ANION GAP 9.9 mmol/L (8-16); CALCIUM 7.4 mg/dL (8.5-10.1); CARBON DIOXIDE 29.8 mmol/L (21.0-32.0); CREATININE - SERUM 0.9 mg/dL (0.6-1.3); POTASSIUM - SERUM 3.7 mmol/L (3.5-5.1)
[2018-09-22 07:16] LABS: HEMATOCRIT 26.5 % (36.0-48.0); HEMOGLOBIN 8.9 g/dL (12-16); MCH 28.8 pg (26.0-34.0); MCHC 33.6 g/dL (31.0-37.0); MCV 85.8 fL (80.0-100.0); MEAN PLATELET VOLUME 10.1 fL (7.4-10.4); RBC 3.09 10x6/uL (4.00-5.40); RDW 14.4 % (11.5-14.5)
[2018-09-22 07:21] LABS: PLATELET COUNT 165 10x3/uL (130-400)
[2018-09-22 07:59] LABS: LYMPHOCYTES 30 % (15-50); MONOCYTES 7 % (2-11); NEUTROPHILS 54 % (40-80); PLATELET ESTIMATE DECREASED
--- NOTE | 2018-09-22 08:00 | NUR ---
LYING IN BED,WITHIOUT DISTRESS.CALL LIGHT IN REACH
[2018-09-22 08:30] VITALS: BP 58/37
[2018-09-22 12:30] VITALS: BP 66/55
--- NOTE | 2018-09-22 13:28 | NUR ---
PT RESTING IN BED. NO SIGNS OF DISTRESS. IV TO LEFT HAND PATENT NO REDNESS OR TENDERNESS. LEFT UPPER ARM MIDLINE PATENT NO REDNESS OR TENDERNESS. COMPLAINS OF PAIN. MEDS GIVEN. DENIES ANY FUTHER NEED AT THIS TIME. CALL LIGHT IN REACH. BED LOW POSITION. NO FAMILY AT BEDSIDE AT THIS TIME.
[2018-09-22 20:00] VITALS: BP 83/47
[2018-09-23] VITALS: BP 89/40
[2018-09-23 04:00] VITALS: BP 78/38
[2018-09-23 05:48] LABS: BASOPHILS 1.1 % (0-2); HEMATOCRIT 30.6 % (36.0-48.0); IMMATURE GRANULOCYTES 9.9 % (0-5); LYMPHOCYTES 29.8 % (15-50); MCH 29.1 pg (26.0-34.0); MCHC 32.7 g/dL (31.0-37.0); MEAN PLATELET VOLUME 9.8 fL (7.4-10.4); MONOCYTES 10.8 % (2-11); NEUTROPHILS 47.4 % (40-80); RBC 3.44 10x6/uL (4.00-5.40); RDW 14.5 % (11.5-14.5)
[2018-09-23 05:49] LABS: PLATELET COUNT 271 10x3/uL (130-400); WBC 14.7 10x3/uL (4.8-10.8)
[2018-09-23 06:23] LABS: ANION GAP 13.4 mmol/L (8-16); CALCIUM 7.3 mg/dL (8.5-10.1); CARBON DIOXIDE 31.3 mmol/L (21.0-32.0); CREATININE - SERUM 1.1 mg/dL (0.6-1.3); POTASSIUM - SERUM 3.7 mmol/L (3.5-5.1)
--- NOTE | 2018-09-23 07:00 | NUR ---
CONCUR WITH HOT DIE PRESS FEEDER ASSESSMENT.
--- NOTE | 2018-09-23 07:37 | NUR ---
RESTING,WITHOUT SIGNS OF DISTRESS
--- NOTE | 2018-09-23 07:49 | NUR ---
PT RESTING IN BED. NO SIGNS OF DISTRESS. IV TO LEFT HAND AND LEFT UPPER ARM MIDLINE PATENT NO REDNESS OR TENDERNESS. ON 3L NC PRN. DENIES ANY OTHER NEED AT THIS TIME. CALL LIGHT IN REACH. BED LOW POSITION. FAMILY AT BEDSIDE.
[2018-09-23 08:56] VITALS: BP 101/62
[2018-09-23 14:31] VITALS: BP 62/35
--- NOTE | 2018-09-23 19:40 | NUR ---
RECEIVED REPORT, ASSUMED CARE, DENIES NEEDS, BED LOWEST POSITION, CALL LIGHT IN REACH, NO S/S OF DISTRESS NOTED, WILL CONTINUE POC
[2018-09-23 20:46] VITALS: BP 86/60
[2018-09-23 21:23] LABS: APPEARANCE CLEAR (CLEAR); BILIRUBIN NEGATIVE (NEGATIVE); COLOR STRAW (YELLOW); GLUCOSE 50 mg/dL (NEGATIVE); KETONE NEGATIVE (NEGATIVE); NITRITE NEGATIVE (NEGATIVE); PROTEIN TRACE mg/dL (NEGATIVE); SPECIFIC GRAVITY 1.005 (1.005-1.020); UROBILINOGEN NORMAL (NORMAL)
[2018-09-23 21:25] LABS: BACTERIA FEW /hpf (NONE SEEN); EPITHELIAL CELLS 0-5 /hpf (0-5); RED CELLS - URINE 0-5 /hpf (0-5); WHITE CELLS - URINE 0-5 /hpf (0-5); YEAST <1+ /hpf (NONE SEEN)
[2018-09-24] VITALS: BP 64/41
--- NOTE | 2018-09-24 03:35 | NUR ---
PT LYING IN BED RESTING QUIETLY, EYES CLOSED. RESP EVEN, UNLABORED. NO DISTRESS NOTED. CONTINUE SPENT GRAIN DRYER'S PLAN OF CARE.
[2018-09-24 04:54] LABS: HEMATOCRIT 27.2 % (36.0-48.0); HEMOGLOBIN 8.9 g/dL (12-16); MCH 28.9 pg (26.0-34.0); MCHC 32.7 g/dL (31.0-37.0); MCV 88.3 fL (80.0-100.0); MEAN PLATELET VOLUME 9.3 fL (7.4-10.4); PLATELET COUNT 283 10x3/uL (130-400); RBC 3.08 10x6/uL (4.00-5.40); RDW 14.6 % (11.5-14.5); WBC 16.7 10x3/uL (4.8-10.8)
[2018-09-24 05:14] LABS: ANION GAP 10.6 mmol/L (8-16); CARBON DIOXIDE 29.9 mmol/L (21.0-32.0); POTASSIUM - SERUM 3.5 mmol/L (3.5-5.1); VANCOMYCIN - TROUGH 9.4 ug/mL (10.0-20.0)
[2018-09-24 05:22] LABS: CALCIUM 6.9 mg/dL (8.5-10.1)
[2018-09-24 05:37] LABS: BASOPHILS 1 % (0-2); EOSINOPHILS 2 % (0-7); LYMPHOCYTES 32 % (15-50); MONOCYTES 10 % (2-11); NEUTROPHILS 55 % (40-80); PLATELET ESTIMATE NORMAL; TOXIC GRANULATION 1+
--- NOTE | 2018-09-24 08:20 | NUR ---
PATIENT RESTING WITH NO NEEDS VOICED, LEFT UPPER ARM MIDLINE SL. PATIENT ALERT AND ORIENTED
[2018-09-24 09:18] VITALS: BP 134/118
[2018-09-24 16:29] VITALS: BP 95/59
[2018-09-24 20:00] VITALS: BP 111/84
--- NOTE | 2018-09-24 20:05 | NUR ---
PT RESTING IN BED. ALERT AND ORIENTED. PT STATES NO PROBLEMS AT THIS TIME. NO SIGNS OF DISTRESS. BREATHING EVEN AND UNLABORED. SKIN CLEAN DRY AND INTACT. IV SITE LT UPPER ARM MIDLINE. DRESSING CLEAN DRY AND ITNACT. NO SIGNS OF INFECTION. BOWEL SOUNDS ACTIVE. NO LOWER LEG SWELLING PRESENT. WILL CONTINUE PLAN OF CARE. CALL LIGHT IN REACH.
--- NOTE | 2018-09-24 21:00 | NUR ---
FSBS 139 NO REGULAR INSULIN GIVEN AT THIS TIME PER SS. LANTUS 20 UNITS PER MAR ORDER GIVEN AT THIS TIME.
--- NOTE | 2018-09-25 00:30 | NUR ---
PT STATED FEELING COLD CLAMY WITH SWEATING CHECKED FSBS 52 GAVE PT MILK JUICE WITH A SNACK
--- NOTE | 2018-09-25 01:00 | NUR ---
PT STATES FELLING MUCH BETTER AT THIS TIME. WILL CONTINUE TO MONITOR.
--- NOTE | 2018-09-25 01:52 | NUR ---
ASLEEP WITH TN ON NO S/S OF DISTRESS CALL LIGHT IN REACH. RESPRATIONS EVEN AND UNLABORED
[2018-09-25 04:00] VITALS: BP 103/65
[2018-09-25 05:37] LABS: BASOPHILS 0.2 % (0-2); EOSINOPHILS 0.2 % (0-7); HEMATOCRIT 30.1 % (36.0-48.0); HEMOGLOBIN 9.9 g/dL (12-16); IMMATURE GRANULOCYTES 2.4 % (0-5); MCH 28.7 pg (26.0-34.0); MCHC 32.9 g/dL (31.0-37.0); MCV 87.2 fL (80.0-100.0); MEAN PLATELET VOLUME 9.5 fL (7.4-10.4); MONOCYTES 6.9 % (2-11); NEUTROPHILS 80.3 % (40-80); PLATELET COUNT 300 10x3/uL (130-400); RBC 3.45 10x6/uL (4.00-5.40); RDW 14.5 % (11.5-14.5)
[2018-09-25 05:58] LABS: WBC 12.5 10x3/uL (4.8-10.8)
[2018-09-25 06:00] LABS: ANION GAP 14.2 mmol/L (8-16); CALCIUM 7.4 mg/dL (8.5-10.1); CARBON DIOXIDE 28.8 mmol/L (21.0-32.0); CREATININE - SERUM 1.1 mg/dL (0.6-1.3)
[2018-09-25 08:45] VITALS: BP 102/76
[2018-09-25 12:49] VITALS: BP 133/80
--- NOTE | 2018-09-25 15:59 | MORECARE ---
CASE MANAGEMENT DISCHARGE SUMMARY PATIENT: SANA FRANCISCO UNIT: [id number] ADM DATE: 09/16/18 AGE: 63 : 54 SEX: F ROOM/BED: D.2210 AUTHOR: GILLIANDOC PHYSICIAN: REFERRING PHYSICIAN: SHWETHA MARIE MD DATE OF SERVICE: 09/25/18 Discharge Plan Patient Name: SANA FRANCISCO Facility: [facility]:[place] : 1955 Planned Disposition: Home Anticipated Discharge Date: Discharge Date: Expected LOS: Initial Reviewer: [email or web address] Initial Review Date: 09/18/2018 Generated: 09/25/18 4:59 pm Comments DCP- Discharge Planning Updated by [id number]: Janna Leiva on 09/18/18 9:[address] Patient Name: SANA FRANCISCO Admission Status: ER Accout number: [id number] Admission Date: 09-16-2018 : 1955 Admission Diagnosis: Attending: SHWETHA MARIE Current LOS: 2 Anticipated DC Date: Planned Disposition: Home Primary Insurance: [facility] MEDICARE SOLUTIONS Discharge Planning Comments: CM met with patient and daughter at bedside. Patient states she lives alone and is independent of ADL's. Daughter Wendy states that she has a friend that stays with her if Wendy isn't available to be there. Patient has a glucometer. Patient denies any home health services. Patient plans on returning to her home upon discharge. CM will continue to follow and assist as needed with discharge planning / needs. Network Support Engineer: Janna Leiva DCPIA - Discharge Planning Initial Assessment Updated by [email or web address]: Janna Leiva on 09/18/18 10:07 am * Is the patient Alert and Oriented? Yes * How many steps to enter\exit or inside your home? * PCP DR RODRIGUEZ * Pharmacy [facility] * Preadmission Environment Home Alone * ADLs Independent * Equipment Glucometer * List name and contact numbers for known caregivers / representatives who currently or will assist patient after discharge: WENDY LOPEZ - DAUGHTER- [phone] * Verbal permission to speak to the caregivers and representatives has been obtained from the patient. Yes * Community resources currently utilized None * Additional services required to return to the preadmission environment? No * Can the patient safely return to the preadmission environment? Yes * Has this patient been hospitalized within the prior 30 days at any hospital? No External Providers External Provider: [facility] Next Contact Date: Service Request Date: Service Type: Resolution: Reviewer: Comments: External Provider: [facility] Next Contact Date: Service Request Date: Service Type: Resolution: Reviewer: Comments: [facility] Contact Date: Service Request Date: Service Type: Resolution: Reviewer: Comments: Last DP export: 09/18/18 9:17 a Patient Name: SANA FRANCISCO Page [id number] at 1559 All edits/amendments must be made on the electronic document DICTATION DATE: 09/25/181557 HOT IRON WORKER: CARLI 09/25/181557 RPT#: [id number] DC DATE: STATUS: ADM IN [facility] [address] [place] [address] END OF REPORT
--- NOTE | 2018-09-25 16:10 | MORECARE ---
CASE MANAGEMENT DISCHARGE SUMMARY PATIENT: SANA FRANCISCO UNIT: [id number] ADM DATE: 09/16/18 AGE: 63 : 54 SEX: F ROOM/BED: D.2210 AUTHOR: GILLIAN,DOC PHYSICIAN: REFERRING PHYSICIAN: SHWETHA MARIE MD DATE OF SERVICE: 09/25/18 Discharge Plan Patient Name: SANA FRANCISCO Facility: [facility]:[place] : 1955 Planned Disposition: Home Anticipated Discharge Date: Discharge Date: Expected LOS: Initial Reviewer: [email or web address] Initial Review Date: 09/18/2018 Generated: 09/25/18 5:09 pm Comments DCP- Discharge Planning Updated by [email or web address]: Sari Collazo on 09/25/18 3:[address] Patient's physical address is: [address] [place] [address] [facility] [place] [phone] boyfriend # [phone] DCP- Discharge Planning Updated by [email or web address]: Sari Collazo on 09/25/18 3:[address] CM met with patient about home IV abx and Home health. REESE with [facility]. I sent the ABX order to [employer] for pricing. I also sent clinical info to [facility] for them to get her set up. IMM served and explained. CM will continue to follow DCP- Discharge Planning Updated by [email or web address]: Janna Leiva on 09/18/18 9:[address] Patient Name: SANA FRANCISCO Admission Status: ER Accout number: [id number] Admission Date: 09-16-2018 : 1955 Admission Diagnosis: Attending: SHWETHA MARIE Current LOS: 2 Anticipated DC Date: Planned Disposition: Home Primary Insurance: [facility] MEDICARE SOLUTIONS Discharge Planning Comments: CM met with patient and daughter at bedside. Patient states she lives alone and is independent of ADL's. Daughter Wendy states that she has a friend that stays with her if Wendy isn't available to be there. Patient has a glucometer. Patient denies any home health services. Patient plans on returning to her home upon discharge. CM will continue to follow and assist as needed with discharge planning / needs. Security Team Lead: Janna Leiva DCPIA - Discharge Planning Initial Assessment Updated by [email or web address]: Janna Leiva on 09/18/18 10:07 am * Is the patient Alert and Oriented? Yes * How many steps to enter\exit or inside your home? * PCP DR RODRIGUEZ * Pharmacy [facility] * Preadmission Environment Home Alone * ADLs Independent * Equipment Glucometer * List name and contact numbers for known caregivers / representatives who currently or will assist patient after discharge: WENDY LOPEZ - DAUGHTER- [phone] * Verbal permission to speak to the caregivers and representatives has been obtained from the patient. Yes * Community resources currently utilized None * Additional services required to return to the preadmission environment? No * Can the patient safely return to the preadmission environment? Yes * Has this patient been hospitalized within the prior 30 days at any hospital? 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
[2018-09-25 16:16] VITALS: BP 117/78
--- NOTE | 2018-09-25 16:31 | NUR ---
WHEN SPEAKING WITH PATIENT SHE WAS SOB AND HER HR WAS TACHY CALLED [facility] AND NEW ORDER RECEIVED FOR AN EKG. SPOKE WITH RT TO DO.
[2018-09-25 20:00] VITALS: BP 70/47
--- NOTE | 2018-09-25 20:00 | NUR ---
PT SITTING UP IN BED, NO SIGNS OF DISTRESS. O2 3L/NC. LEFT UPPER ARM MIDLINE. NO REDNESS OR SWELLING AT INSERTION SITE, DRESSING CDI. BS 61, HELD REG INSULIN AND LANTUS. GAVE TURKEY SANDWHICH AND JUICE. ALERT AND ORIENTED. STATES NO NEEDS AT THIS TIME. CL IN REACH, WILL CONTINUE TO MONITOR
--- NOTE | 2018-09-25 23:30 | NUR ---
CALLED TO ROOM BY PT FOR NAUSEA AND VOMITING. PT FELT BS WAS LOW. CHECKED, BS 112. GAVE PT ZOFRAN ORDERED. PROVIDED JUICE AND CRACKERS W/ PEANUT BUTTER FOR WHEN PT FEELS UP TO EATING. GAVE XANAX ONCE NAUSEA SUBSIDED FOR ANXIETY AND SLEEP. NO OTHER NEEDS AT THIS TIME. CL IN REACH
[2018-09-26] VITALS: BP 76/49
[2018-09-26 04:00] VITALS: BP 72/50
[2018-09-26 05:42] LABS: BASOPHILS 0.2 % (0-2); EOSINOPHILS 0.9 % (0-7); HEMATOCRIT 29.1 % (36.0-48.0); HEMOGLOBIN 9.4 g/dL (12-16); IMMATURE GRANULOCYTES 1.7 % (0-5); MCHC 32.3 g/dL (31.0-37.0); MEAN PLATELET VOLUME 9.3 fL (7.4-10.4); MONOCYTES 9.6 % (2-11); NEUTROPHILS 62.6 % (40-80); PLATELET COUNT 331 10x3/uL (130-400); RBC 3.24 10x6/uL (4.00-5.40); RDW 14.6 % (11.5-14.5)
[2018-09-26 05:46] LABS: MCV 89.8 fL (80.0-100.0)
[2018-09-26 06:43] LABS: ANION GAP 10.8 mmol/L (8-16); CARBON DIOXIDE 29.9 mmol/L (21.0-32.0); CREATININE - SERUM 1.1 mg/dL (0.6-1.3); POTASSIUM - SERUM 3.7 mmol/L (3.5-5.1)
--- NOTE | 2018-09-26 08:41 | NUR ---
PT RESTING IN BED. AROUSED BY VERBAL STIMULI. FAMILY SLEEPING AT EBDSIDE. DENIES NEEDS. NO S/S OF ACUTE DISTRESS. CL IN PLACE.
[2018-09-26 10:04] VITALS: BP 100/73
[2018-09-26] MEDS ORDERED: ROBITUSSIN DM 110 ML PO (13:31)
[2018-09-26] MEDS ORDERED: FLORAJEN3 CAPS460 MG PO (13:31)
[2018-09-26] MEDS ORDERED: AFRIN NASAL SPR15 ML NASAL (13:31)
--- NOTE | 2018-09-26 14:50 | NUR ---
RT EVALUATION FOR HOME 02: PATIENT RESTING ROOM AIR SP02 85%
--- NOTE | 2018-09-26 15:07 | MORECARE ---
CASE MANAGEMENT DISCHARGE SUMMARY PATIENT: SANA FRANCISCO UNIT: [id number] ADM DATE: 09/16/18 AGE: 63 : 54 SEX: F ROOM/BED: D.2210 AUTHOR: GILLIAN,DOC PHYSICIAN: REFERRING PHYSICIAN: SHWETHA MARIE MD DATE OF SERVICE: 09/26/18 Discharge Plan Patient Name: SANA FRANCISCO Facility: [facility]:[place] : 1955 Planned Disposition: Home Anticipated Discharge Date: Discharge Date: Expected LOS: Initial Reviewer: [email or web address] Initial Review Date: 09/18/2018 Generated: 09/26/18 4:07 pm Comments DCP- Discharge Planning Updated by [id number]: Sari Collazo on 09/25/18 3:[address] Patient's physical address is: [address] [place] [address] [facility] [place] [phone] boyfriend # [phone] DCP- Discharge Planning Updated by [email or web address]: Sari Collazo on 09/25/18 3:[address] CM met with patient about home IV abx and Home health. REESE with [facility]. I sent the ABX order to [employer] for pricing. I also sent clinical info to [facility] for them to get her set up. IMM served and explained. CM will continue to follow DCP- Discharge Planning Updated by [email or web address]: Janna Leiva on 09/18/18 9:[address] Patient Name: SANA FRANCISCO Admission Status: ER Accout number: [id number] Admission Date: 09-16-2018 : 1955 Admission Diagnosis: Attending: SHWETHA MARIE Current LOS: 2 Anticipated DC Date: Planned Disposition: Home Primary Insurance: [facility] MEDICARE SOLUTIONS Discharge Planning Comments: CM met with patient and daughter at bedside. Patient states she lives alone and is independent of ADL's. Daughter Wendy states that she has a friend that stays with her if Wendy isn't available to be there. Patient has a glucometer. Patient denies any home health services. Patient plans on returning to her home upon discharge. CM will continue to follow and assist as needed with discharge planning / needs. Qlikview Developer: Janna Leiva DCPIA - Discharge Planning Initial Assessment Updated by [email or web address]: Janna Leiva on 09/18/18 10:07 am * Is the patient Alert and Oriented? Yes * How many steps to enter\exit or inside your home? * PCP DR RODRIGUEZ * Pharmacy [facility] * Preadmission Environment Home Alone * ADLs Independent * Equipment Glucometer * List name and contact numbers for known caregivers / representatives who currently or will assist patient after discharge: WENDY LOPEZ - DAUGHTER- [phone] * Verbal permission to speak to the caregivers and representatives has been obtained from the patient. Yes * Community resources currently utilized None * Additional services required to return to the preadmission environment? No * Can the patient safely return to the preadmission environment? Yes * Has this patient been hospitalized within the prior 30 days at any hospital? 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
--- NOTE | 2018-09-26 15:50 | MORECARE ---
CASE MANAGEMENT DISCHARGE SUMMARY PATIENT: SANA FRANCISCO UNIT: [id number] ADM DATE: 09/16/18 AGE: 63 : 54 SEX: F ROOM/BED: D.2210 AUTHOR: GILLIAN,DOC PHYSICIAN: REFERRING PHYSICIAN: SHWETHA MARIE MD DATE OF SERVICE: 09/26/18 Discharge Plan Patient Name: SANA FRANCISCO Facility: [facility]:[place] : 1955 Planned Disposition: Home Anticipated Discharge Date: Discharge Date: Expected LOS: Initial Reviewer: [email or web address] Initial Review Date: 09/18/2018 Generated: 09/26/18 4:49 pm Comments DCP- Discharge Planning Updated by [email or web address]: Sari Collazo on 09/26/18 2:[address] PATIENT WILL BE DISCHARGING HOME TODAY WITH [facility]. THE IV QUOTES WERE [place] 265.22 [place] 316.00 [facility] WILL BE HER HOME HEALTH [facility], I SPOKE WITH [facility] AND THEY WILL MEET HER AT 0800AM TOMORROW TO START HER IV ABX [facility] IS AT BEDSIDE NOW FOR TEACHING I RECEIVED THE OK FROM DR JOE AND DR YOUNG TO CHANGE THE IV ABX TIMES TO 0800 & 2000 PATIENT POX WAS 85% ON ROOM AIR, SHE WILL QUALIFY FOR PORTABLE O2 AND HOME O2 REFERRAL SENT TO [facility]. O2 WILL BE DELIVERED TO THE HOSPITAL CM WILL CONTINUE TO FOLLOW AND ASSIST WITH DC PLANNING NEEDED DCP- Discharge Planning Updated by [id number]: Sari Collazo on 09/25/18 3:[address] Patient's physical address is: [address] [place] [address] boyfriend # [phone] DCP- Discharge Planning Updated by [email or web address]: Sari Collazo on 09/25/18 3:[address] CM met with patient about home IV abx and Home health. REESE with [facility]. I sent the ABX order to [employer] [facility] [employer] for pricing. I also sent clinical info to [facility] for them to get her set up. IMM served and explained. CM will continue to follow DCP- Discharge Planning Updated by [email or web address]: Janna Leiva on 09/18/18 9:[address] Patient Name: SANA FRANCISCO Admission Status: ER Accout number: [id number] Admission Date: 09-16-2018 : 1955 Admission Diagnosis: Attending: SHWETHA MARIE Current LOS: 2 Anticipated DC Date: Planned Disposition: Home Primary Insurance: [facility] MEDICARE SOLUTIONS Discharge Planning Comments: CM met with patient and daughter at bedside. Patient states she lives alone and is independent of ADL's. Daughter Wendy states that she has a friend that stays with her if Wendy isn't available to be there. Patient has a glucometer. Patient denies any home health services. Patient plans on returning to her home upon discharge. CM will continue to follow and assist as needed with discharge planning / needs. Ring Conductor: Janna Leiva DCPIA - Discharge Planning Initial Assessment Updated by [email or web address]: Janna Leiva on 09/18/18 10:07 am * Is the patient Alert and Oriented? Yes * How many steps to enter\exit or inside your home? * PCP DR RODRIGUEZ * Pharmacy [facility] * Preadmission Environment Home Alone * ADLs Independent * Equipment Glucometer * List name and contact numbers for known caregivers / representatives who currently or will assist patient after discharge: WENDY LOPEZ - DAUGHTER- [phone] * Verbal permission to speak to the caregivers and representatives has been obtained from the patient. Yes * Community resources currently utilized None * Additional services required to return to the preadmission environment? No * Can the patient safely return to the preadmission environment? Yes * Has this patient been hospitalized within the prior 30 days at any hospital? 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 [address] [place] [address] END OF REPORT
--- NOTE | 2018-09-26 16:43 | NUR ---
DC INSTRUCTIONS AND EDUCATION GIVEN TO PT. ALL BELONGING SENT WITH PT. FLU SHOT TO L ARM. INFUSION REP CAME IN AND SPOKE WITH PT. HOME O2 WITH PT. NO S/S OF ACUTE DISTRESS.
--- NOTE | 2018-09-26 17:09 | NUR ---
PT REQUESTED XANAX BE REFILLED DT , "THE COSMETIC CHEMIST TOOK MY NARCOTICS AND I DO NOT KNOW WHERE THEY PUT THEM. CALLED [facility] WHO STATED PT NEEDS TO COMTACT PCP FOR REFILL. NO S/S OF ACUTE DISTRESS. PT TAKEN OFF FLOOR WITH BELONGINGS AND WC.
--- NOTE | 2018-09-28 11:45 | MORECARE ---
CASE MANAGEMENT DISCHARGE SUMMARY PATIENT: SANA FRANCISCO UNIT: [id number] ADM DATE: 09/16/18 AGE: 63 : 54 SEX: F ROOM/BED: D.2210 AUTHOR: GILLIAN,DOC PHYSICIAN: REFERRING PHYSICIAN: SHWETHA MARIE MD DATE OF SERVICE: 09/28/18 Discharge Plan Patient Name: SANA FRANCISCO Facility: [facility]:[place] : 1955 Planned Disposition: Home Anticipated Discharge Date: Discharge Date: 09/26/2018 Expected LOS: 0 Initial Reviewer: [email or web address] Initial Review Date: 09/18/2018 Generated: 09/28/18 12:45 pm Comments DCP- Discharge Planning Updated by [id number]: Sari Collazo on 09/26/18 2:[address] PATIENT WILL BE DISCHARGING HOME TODAY WITH [facility]. THE IV QUOTES WERE [place] 265.22 [place] 316.00 [facility] WILL BE HER HOME HEALTH COMPANY, I SPOKE WITH [facility] AND THEY WILL MEET HER AT 0800AM TOMORROW TO START HER IV ABX [place] IS AT BEDSIDE NOW FOR TEACHING I RECEIVED THE OK FROM DR JOE AND DR YOUNG TO CHANGE THE IV ABX TIMES TO 0800 & 2000 PATIENT POX WAS 85% ON ROOM AIR, SHE WILL QUALIFY FOR PORTABLE O2 AND HOME O2 [facility]FERRAL SENT TO [facility]. O2 WILL BE DELIVERED TO THE HOSPITAL CM WILL CONTINUE TO FOLLOW AND ASSIST WITH DC PLANNING NEEDED DCP- Discharge Planning Updated by [id number]: Sari Collazo on 09/25/18 3:[address] Patient's physical address is: [address] [place] [address] [facility] [phone] boyfriend # [phone] DCP- Discharge Planning Updated by [email or web address]: Sari Collazo on 09/25/18 3:[address] CM met with patient about home IV abx and Home health. REESE with [facility]. I sent the ABX order to [facility] [employer] for pricing. I also sent clinical info to [facility] for them to get her set up. IMM served and explained. CM will continue to follow DCP- Discharge Planning Updated by [id number]: Janna Leiva on 09/18/18 9:[address] Patient Name: SANA FRANCISCO Admission Status: ER Accout number: [id number] Admission Date: 09-16-2018 : 1955 Admission Diagnosis: Attending: SHWETHA MARIE Current LOS: 2 Anticipated DC Date: Planned Disposition: Home Primary Insurance: [facility] [employer] Discharge Planning Comments: CM met with patient and daughter at bedside. Patient states she lives alone and is independent of ADL's. Daughter Wendy states that she has a friend that stays with her if Wendy isn't available to be there. Patient has a glucometer. Patient denies any home health services. Patient plans on returning to her home upon discharge. CM will continue to follow and assist as needed with discharge planning / needs. Prosthodontist: Janna Leiva DCPIA - Discharge Planning Initial Assessment Updated by [id number]: Janna Leiva on 09/18/18 10:07 am * Is the patient Alert and Oriented? Yes * How many steps to enter\exit or inside your home? * PCP DR RODRIGUEZ * Pharmacy [facility] * Preadmission Environment Home Alone * ADLs Independent * Equipment Glucometer * List name and contact numbers for known caregivers / representatives who currently or will assist patient after discharge: WNEDY LOPEZ - DAUGHTER- [phone] * Verbal permission to speak to the caregivers and representatives has been obtained from the patient. Yes * Community resources currently utilized None * Additional services required to return to the preadmission environment? No * Can the patient safely return to the preadmission environment? Yes * Has this patient been hospitalized within the prior 30 days at any hospital? No Coverage Notice Reviewer: [id number] Tia Collazo Notice Issued Date-Time: 09/25/2018 15:45 Notice Type: IM Discharge Notice Notice Delivered To: Patient Relationship to Patient: Chemical Engineering Professor Name: Delivery Method: HAND - Hand Delivered Beronica Days: Prior Verbal Notification: Recipient Understood Notice: Yes Recipient Signature: Yes Med Rec Note Co-signed by Attending: Coverage Notice Comment: Last DP export: 09/26/18 2:49 p Patient Name: SANA FRANCISCO Page [phone] at 1145 All edits/amendments must be made on the electronic document DICTATION DATE: 09/28/18 1145 LOADING UNIT OPERATOR POWDER CHARGING: CARLI 09/28/18 1145 RPT#: [id number] DC DATE:09/26/18 STATUS: DIS IN [facility] [address] [place] [address] END OF REPORT
== END 2018-09-26 17:13 | disposition home health service (06) | DRG 871 ==
LOC: D.ER 19:27 → D.MS 23:18 → D.CVICU 23:18 → D.ICU 09-18 17:52 → D.MS 09-21 15:31
PROVIDERS: Family Medicine; Internal Medicine Nephrology; ADMIT Family Medicine
PROC: 05HY33Z Insertion of Infusion Device into Upper Vein, Percutaneous Approach (ICD-10-PCS; principal; 2018-09-16)
PROC: 05HY33Z Insertion of Infusion Device into Upper Vein, Percutaneous Approach (ICD-10-PCS; 2018-09-25)
DX: A41.9 Sepsis, unspecified organism (principal); E11.10 Type 2 diabetes mellitus with ketoacidosis without coma; J18.1 Lobar pneumonia, unspecified organism; J96.21 Acute and chronic respiratory failure with hypoxia; J13 Pneumonia due to Streptococcus pneumoniae; N17.9 Acute kidney failure, unspecified; K59.00 Constipation, unspecified

== ENCOUNTER → 2018-10-01 16:44 | Outpatient (CLI) | payer MEDICARE ==
[2018-09-17 16:11] VITALS: BMI 24.2
[~2018-10-01 16:44] MED LIST changes: +AFRIN NASAL SPR15 ML NASAL; +BASAGLAR K100 UNIT/1 SC; +ROBITUSSIN DM 110 ML PO; +SINGULAIR10 MG; +XANAX XR0.5 MG PO
[2018-10-01 17:00] LABS: BASOPHILS 0.2 % (0-2); EOSINOPHILS 1.7 % (0-7); HEMATOCRIT 33.1 % (36.0-48.0); HEMOGLOBIN 10.9 g/dL (12-16); LYMPHOCYTES 39.7 % (15-50); MCH 29.5 pg (26.0-34.0); MCHC 32.9 g/dL (31.0-37.0); MCV 89.7 fL (80.0-100.0); MEAN PLATELET VOLUME 9.2 fL (7.4-10.4); MONOCYTES 10.8 % (2-11); NEUTROPHILS 46.6 % (40-80); RBC 3.69 10x6/uL (4.00-5.40); WBC 8.8 10x3/uL (4.8-10.8)
[2018-10-01 17:01] LABS: PLATELET COUNT 542 10x3/uL (130-400)
[2018-10-01 17:09] LABS: CREATININE - SERUM 0.9 mg/dL (0.6-1.3)
== END | disposition home or self-care (01) ==
LOC: D.LABREF 16:44
PROVIDERS: Student in an Organized Health Care Education/Training Program
DX: J18.9 Pneumonia, unspecified organism (principal); N39.0 Urinary tract infection, site not specified

== ENCOUNTER → 2018-10-02 09:13 | Outpatient (CLI) | payer MEDICARE ==
[2018-09-17 16:11] VITALS: BMI 24.2
== END | disposition home or self-care (01) ==
LOC: D.RAD 09-28 08:30
DX: J18.9 Pneumonia, unspecified organism (principal)

== ENCOUNTER → 2019-01-18 09:23 | Outpatient (CLI) | payer MEDICARE ==
[2018-09-17 16:11] VITALS: BMI 24.2
== END | disposition home or self-care (01) ==
LOC: D.RT 09:00
PROVIDERS: ATTEND Internal Medicine Pulmonary Disease
DX: J44.9 Chronic obstructive pulmonary disease, unspecified (principal)

== ENCOUNTER 2020-01-06 13:56 | Inpatient (IN) | payer MEDICARE ==
[~2020-01-06] VITALS: Ht 162.6 cm; Wt 53.0 kg
[2020-01-06] VITALS (8 sets, daily range): BP systolic 103–142; BP diastolic 60–89; BMI 18.7
[2020-01-06 14:47] LABS: BASOPHILS 0.2 % (0-2); EOSINOPHILS 0.1 % (0-7); HEMATOCRIT 40.2 % (36.0-48.0); HEMOGLOBIN 13.1 g/dL (12-16); IMMATURE GRANULOCYTES 0.6 % (0-5); LYMPHOCYTES 10.8 % (15-50); MCH 29.6 pg (26.0-34.0); MCHC 32.6 g/dL (31.0-37.0); NEUTROPHILS 82.3 % (40-80); RBC 4.42 10x6/uL (4.00-5.40); RDW 13.9 % (11.5-14.5); WBC 12.8 10x3/uL (4.8-10.8)
[2020-01-06 15:00] LABS: APTT 30.1 SECONDS (22.8-39.4); INR 0.86 (0.85-1.17); PROTIME 11.8 SECONDS (11.6-15.0)
[2020-01-06 15:05] LABS: PLATELET COUNT 301 10x3/uL (130-400)
[2020-01-06 15:23] LABS: ALBUMIN 3.1 g/dL (3.4-5.0); ALKALINE PHOSPHATASE 188 U/L (30-120); ALT (SGPT) 22 U/L (10-68); BILIRUBIN - TOTAL 0.56 mg/dL (0.2-1.3); CALCIUM 8.6 mg/dL (8.5-10.1); CREATINE KINASE 84 UL (21-215); CREATININE - SERUM 1.2 mg/dL (0.6-1.3); MAGNESIUM - SERUM 1.8 mg/dL (1.8-2.4); POTASSIUM - SERUM 3.7 mmol/L (3.5-5.1); PROTEIN - SERUM 8.4 g/dL (6.4-8.2); THYROID STIMULATING HORMONE 0.87 uIU/mL (0.36-3.74); UREA NITROGEN 22 mg/dL (7-18); eGFR NON AFRICAN AMERICAN 48 mL/min (90-120)
[2020-01-06 15:25] LABS: CALC OSMOLALITY 285 mosm/kg (275-300); TROPONIN-I < 0.017 ng/mL (0.000-0.060)
[2020-01-06 15:30] LABS: CHLORIDE - SERUM 80 mmol/L (98-107); GLUCOSE 933 mg/dL (74-106); SODIUM 117 mmol/L (136-145)
[2020-01-06 15:40] LABS: UDS - AMPHET POSITIVE QUAL (NEGATIVE); UDS - BARB NEGATIVE QUAL (NEGATIVE); UDS - BENZO NEGATIVE QUAL (NEGATIVE); UDS - COCAINE NEGATIVE QUAL (NEGATIVE); UDS - OPIATE NEGATIVE QUAL (NEGATIVE); UDS - PCP NEGATIVE QUAL (NEGATIVE); UDS - THC NEGATIVE QUAL (NEGATIVE)
[2020-01-06 15:43] LABS: BILIRUBIN NEGATIVE (NEGATIVE); GLUCOSE 1000 mg/dL (NEGATIVE); KETONE NEGATIVE (NEGATIVE); NITRITE NEGATIVE (NEGATIVE); UROBILINOGEN NORMAL (NORMAL)
[2020-01-06 15:44] LABS: BACTERIA MANY /hpf (NEGATIVE); EPITHELIAL CELLS 0-5 /hpf (0-5); RED CELLS - URINE OCC /hpf (0-5); WHITE CELLS - URINE 25-50 /hpf (NEGATIVE)
--- NOTE | 2020-01-06 19:59 | NUR ---
FSBS 420
--- NOTE | 2020-01-06 22:20 | NUR ---
REPORT CALLED TO [facility]. INSULIN DRIP CONTINUES.BS 161. FLOWSHEET TRANSFERED WITH PATIENT. [facility] IN CVICU NOTIFIED OF BLOOD SUGAR AND HE SAID HE WILL ADJUST THE RATE WHEN PATIENT ARRIVES
--- NOTE | 2020-01-06 22:20 | NUR ---
PT ADMITTED TO CV 3 FROM ER, NURSE TRANSPORTED PATIENT VIA STRETCHER, PT IS AAOX4, PT MOVED TO BED FROM STRETCHER WITHOUT ASSISTANCE, MONITORING DEVICES CONNECTED, NO DISTRESS NOTED
[2020-01-06] MEDS ORDERED: KLONOPIN1 MG PO (22:54)
[2020-01-06] MEDS ORDERED: HUMALOG 30100 UNITS/ SC (22:55)
[2020-01-06 23:09] LABS: CALCIUM 8.5 mg/dL (8.5-10.1); CARBON DIOXIDE 23.7 mmol/L (21.0-32.0); CHLORIDE - SERUM 100 mmol/L (98-107); SODIUM 136 mmol/L (136-145); eGFR NON AFRICAN AMERICAN 89 mL/min (90-120)
[2020-01-06 23:54] LABS: CALC OSMOLALITY 270 mosm/kg (275-300); CREATININE - SERUM 0.7 mg/dL (0.6-1.3); UREA NITROGEN 16 mg/dL (7-18)
[2020-01-06 23:55] LABS: GLUCOSE 66 mg/dL (74-106); POTASSIUM - SERUM 2.6 mmol/L (3.5-5.1)
[2020-01-07] VITALS (25 sets, daily range): BP systolic 80–136; BP diastolic 50–86; Ht 162.6 cm; Wt 53.0 kg
--- NOTE | 2020-01-07 01:00 | NUR ---
PT RESTING WITH EYES CLOSED RESP EVEN AND NON LABORED, NO DISTRESS NOTED
--- NOTE | 2020-01-07 03:00 | NUR ---
PT REASSESSMENT COMPLETED AT THIS TIME, NO CHANGE NOTED FROM PREVIOUS EXAM, PT IS AWAKE PLAYING A GMAE ON HER PHONE, NO DISTRESS NOTED
--- NOTE | 2020-01-07 05:00 | NUR ---
PT RESTING IN BED WITH PHONE, VSS, WILL MONITOR FOR CHANGES
[2020-01-07 05:56] LABS: BASOPHILS 0.2 % (0-2); HEMOGLOBIN 11.3 g/dL (12-16); IMMATURE GRANULOCYTES 0.8 % (0-5); MCHC 33.2 g/dL (31.0-37.0); MEAN PLATELET VOLUME 9.6 fL (7.4-10.4); MONOCYTES 7.9 % (2-11); NEUTROPHILS 67.1 % (40-80); PLATELET COUNT 295 10x3/uL (130-400); RBC 3.89 10x6/uL (4.00-5.40); RDW 13.8 % (11.5-14.5); WBC 10.5 10x3/uL (4.8-10.8)
[2020-01-07 06:19] LABS: MCV 87.4 fL (80.0-100.0)
[2020-01-07 06:40] LABS: ALKALINE PHOSPHATASE 117 U/L (30-120); BILIRUBIN - TOTAL 0.29 mg/dL (0.2-1.3); CALCIUM 8.1 mg/dL (8.5-10.1); CARBON DIOXIDE 23.2 mmol/L (21.0-32.0); CHLORIDE - SERUM 101 mmol/L (98-107); CKMB 2.3 U/L (0.0-3.6); CREATINE KINASE 75 UL (21-215); CREATININE - SERUM 0.7 mg/dL (0.6-1.3); MAGNESIUM - SERUM 1.5 mg/dL (1.8-2.4); PROTEIN - SERUM 6.3 g/dL (6.4-8.2); SODIUM 131 mmol/L (136-145); TROPONIN-I < 0.017 ng/mL (0.000-0.060); UREA NITROGEN 17 mg/dL (7-18); eGFR NON AFRICAN AMERICAN 89 mL/min (90-120)
[2020-01-07 06:41] LABS: ALBUMIN 2.2 g/dL (3.4-5.0); ALT (SGPT) 14 U/L (10-68); CALC OSMOLALITY 271 mosm/kg (275-300); GLUCOSE 222 mg/dL (74-106)
--- NOTE | 2020-01-07 07:00 | NUR ---
RECEIVED BEDSIDE REPORT ON PATIENT AND ASSUMED CARE. IV INFUSING D51/2NS WITH 40 MEQ OF K AT 100 ML/HR AND INSULIN AT 10.8 UNITS/HR, HOWEVER THE IV WAS DISCONNECTED FROM THE IV. FSBS - 273, AFTER REVIEWING PREVIOUS FSBS AND RATES INCREASING EACH TIME, RATE WAS STARTED WITH A MULTIPLIER OF 0.03 AND RESTARTED AT 6.4 UNITS/HR. PATIENT ALERT AND ORIENTED X 4, IV TO LEFT FA 20, INFUSING W/O S/S OF INFILTRATION. BBS - CLEAR AND EQUAL ON RA. CM - SR WITH NO ECTOPY NOTED. HEAD TO TOE ASSESSMENT COMPLETED.
--- NOTE | 2020-01-07 08:30 | NUR ---
FSBS - 229, RATE ADJUSTED PER FLOWSHEET TO 6.8 UNITS/HR. UP TO BEDSIDE CHAIR FOR BREAKFAST. INCONTINENT OF URINE, DEPENDS CHANGED AND CLEANED. BREAKFAST TRAY PROVIDED TO PATIENT. VSS.
--- NOTE | 2020-01-07 09:48 | NUR ---
PATIENT ASSISTED TO BATHROOM, VOIDS APPROXIMATELY 300 CC OF CLOUDY STRAW COLORED URINE. BACK TO BEDSIDE CHAIR. FSBS - 211 MG/DL, INSULIN GTT ADJUSTED PER SLIDING SCALE TO 7.6 UNITS/HR. DR. CONNORS AT ROOM UPDATED AND EXAMINES PATIENT. VSS.
--- NOTE | 2020-01-07 09:49 | NUR ---
DR. CONNORS AT ROOM UPDATED AND EXAMINES PATIENT. VSS.
--- NOTE | 2020-01-07 10:49 | NUR ---
FSBS - 177 MG/DL, INSULING GTT ADJUSTED PER FLOWSHEET TO 7 UNITS/HR. VSS. ASSISTED BACK TO BED. LINENS CHANGED.
--- NOTE | 2020-01-07 11:00 | NUR ---
REASSESSMENT COMPLETED. VSS.
--- NOTE | 2020-01-07 11:30 | NUR ---
FSBS - 109 MG/DL, INSULIN GTT PER SLIDING SCALE AT 3 UNITS/HR.
--- NOTE | 2020-01-07 12:00 | NUR ---
INSULIN GTT DISCONTINUED PER ORDER. NS BOLUS INTIATED.
--- NOTE | 2020-01-07 12:27 | NUR ---
PATIENT EATING LUNCH TRAY. VSS. NO NEEDS AT THIS TIME.
--- NOTE | 2020-01-07 14:54 | NUR ---
PATIENT UP TO BATHROOM, VOIDS 350 CC CLOUDY STRAW COLORED URINE. REASSESSMENT COMPLETED. VSS.
--- NOTE | 2020-01-07 16:48 | NUR ---
FSBS - 176 MG/DL, GIVEN 24 UNITS PER SLIDING SCALE OF INSULIN. GIVEN DINNER TRAY, VSS.
--- NOTE | 2020-01-07 19:00 | NUR ---
REPORT RECEIVED. PT RESTING IN BED AT THIS TIME. NO ACUTE DISTRESS NOTED. ASSESSMENT COMPLETED, SEE FLOWSHEET. PIV IN LEFT FOREARM INFUSING, SEE IV FLOWSHEET.
--- NOTE | 2020-01-07 21:00 | NUR ---
PT PULLED OUT PIV IN LEFT FOREARM. NEW PIV INITIATED IN LEFT FOREARM. WILL CONTINUE TO MONITOR.
--- NOTE | 2020-01-07 23:00 | NUR ---
PT RESTING IN BED, REASSESSMENT COMPLETED.
[2020-01-08] VITALS (15 sets, daily range): BP systolic 70–140; BP diastolic 63–100
--- NOTE | 2020-01-08 03:45 | NUR ---
PT HAD HYPOGLYCEMIC EPISODE, LETHARGIC, DIFFICULT TO AROUSE. HYPOGLYCEMIC PROTOCOL INITIATED. WILL CONTINUE TO MONITOR.
[2020-01-08 05:27] LABS: BASOPHILS 0.2 % (0-2); EOSINOPHILS 1.3 % (0-7); HEMATOCRIT 36.3 % (36.0-48.0); HEMOGLOBIN 11.9 g/dL (12-16); LYMPHOCYTES 30.4 % (15-50); MCH 29.4 pg (26.0-34.0); MCHC 32.8 g/dL (31.0-37.0); MEAN PLATELET VOLUME 9.4 fL (7.4-10.4); MONOCYTES 7.4 % (2-11); NEUTROPHILS 59.7 % (40-80); PLATELET COUNT 303 10x3/uL (130-400); RBC 4.05 10x6/uL (4.00-5.40); RDW 14.1 % (11.5-14.5)
[2020-01-08 05:46] LABS: CALC OSMOLALITY 272 mosm/kg (275-300); CALCIUM 8.3 mg/dL (8.5-10.1); CARBON DIOXIDE 23.5 mmol/L (21.0-32.0); CHLORIDE - SERUM 108 mmol/L (98-107); CREATININE - SERUM 0.7 mg/dL (0.6-1.3); MAGNESIUM - SERUM 1.7 mg/dL (1.8-2.4); PHOSPHOROUS 3.1 mg/dL (2.5-4.9); POTASSIUM - SERUM 4.3 mmol/L (3.5-5.1); SODIUM 138 mmol/L (136-145); UREA NITROGEN 13 mg/dL (7-18); eGFR NON AFRICAN AMERICAN 89 mL/min (90-120)
[2020-01-08 05:47] LABS: MCV 89.6 fL (80.0-100.0)
[2020-01-08 05:53] LABS: GLUCOSE 52 mg/dL (74-106)
--- NOTE | 2020-01-08 07:20 | NUR ---
PATIENT SITTING ON SIDE OF BED. PULL UP WET, BED SOAKING WET, PATIENT USING LOUD FOUL LANGUAGE WANTS UP OUT OF THIS BED. ALL THIS STUFF OFF HER AND SOME DRY CLOTHS. DRY GOWN AND DRY PULL UP PROVIDED. PLACED IN CHAIR AT BEDSIDE. REORIENTATED WHY SHE IS HERE, WHERE SHE IS AT. CONTINOUSLY USING LOUD FOUL LANGUAGE WANTING SOMETHING TO EAT.
--- NOTE | 2020-01-08 08:00 | NUR ---
BREAKFAST SERVED. STATES SHE DOES LIKE ANY OF THIS FOOD, DOES NOT LIKE OATMEAL, ASKED PATIENT WHAT SHE WANTS FOR BREAKFAST, STATE SHE WILL EAT THIS, MENU IS MARKED, EVERYTHING MARKED ON MENU IS ON TRAY. PATIENT DENIES FILLING OUT MENU. CONTINOUSLY USING LOUD FOUL LANGUAGE F... THIS F... THAT. ADDITIONAL BUTTER PROVIDED . PULSE OX REMOVED AT PATIENT REQUEST. LEFT FOREARM INFUISNG WITH D51/2NS WITH 40 MEQ KCL AT 100 ML HOUR. PHONE AND CALL LIGHT WITHIN HANDS REACH.
--- NOTE | 2020-01-08 08:30 | NUR ---
ATE 100% OF BREAKFAST TRAY ORDER A SECOND BREAKFAST TRAY.
--- NOTE | 2020-01-08 08:54 | NUR ---
DIETICAN IN TALKING WITH PATIENT. PATIENT EATING SECOND TRAY. UPPER DENTURE PROVIDED TO PATIENT AFTER CLEANING
--- NOTE | 2020-01-08 09:36 | NUR ---
AMBULATED TO BATHROOM, CLEAN GOWN, ALKA CARE DONE. PATIENT PULLUP SOAKING WET. LINEN IN CHAIR SOAKING WET. PATEINT ADMITS THIS HAS BEEN HAPPENING AT HOME. AMBULATED TO BED. GAIT UNSTEADY, STATES SHE USES A WALKER AT HOME. MORE FRIENDLY SPEAKING MUCH NICER TO NURSE
--- NOTE | 2020-01-08 10:04 | NUR ---
Nutrition Follow-up: Pt sitting in chair eating breakfast at time of visit. Nursing reports that she ate 100% of first tray provided and was provided with a second tray. Denies N/V/C/D. Answered questions pt had about diabetic diet education provided yesterday; pt v/u. Diet: Diabetic PO intake: 100% Wt: 116# (01/06); 109.1# (01/05) Last BM: 01/06 Labs noted: Glu 52, Ca 8.3, Mg 1.7 Meds noted: Lantus, Humulin, Protonix, D5 1/2NS/KCl @ 100, electrolyte protocol -Monitor wt. -RD following.
--- NOTE | 2020-01-08 12:00 | NUR ---
LUNCH TRAY SERVED ATE WELL.
--- NOTE | 2020-01-08 13:51 | NUR ---
REPORT CALLED TO JODI. PATIENT TO TRANSFER TO ROOM 2113 PER WHEEL CHAIR.
--- NOTE | 2020-01-08 14:20 | NUR ---
RECEIVED PT ROOM 2112. ORIENTED PT ROOM AND CALL LIGHT, WILL ASSESS PT AND CONTINUE PLAN OF CARE.
--- NOTE | 2020-01-08 16:53 | NUR ---
BLOOD SUGAR OF 189, 6UNITS GIVEN PER S/S. DR. HOLLOWAY AT BEDSIDE TO ASSESS PT. PT DENIES ANY NEEDS AT THIS TIME. CALL LIGHT IN REACH, NAD NOTED.
--- NOTE | 2020-01-08 19:00 | NUR ---
REPORT RECEIVED, WILL CONTINUE POC. PATIENT IS AAOX4, WALKING BACK FROM THE BATHROOM. NO S/S OF DISTRESS OBSERVED, RR EVEN AND UNLABORED ON ROOM AIR. PATIENT REQUEST SNACKS AND JUICE, INFORMED PATIENT THAT HER FSBS NEEDED TO BE OBTAINED FIRST AND THEN I COULD GIVE HER HS SNACK. PATIENT EXPRESSES UNDERSTANDING. PIV TO RT AND LT FA, BOTH SL. PATIENT DENIES FURTHER NEEDS AT THIS TIME. CL IN REACH, BED LOCKED AND LOWERED. WILL CTM.
--- NOTE | 2020-01-09 03:24 | NUR ---
PATIENT TO NURSES STATION C/O FEELING LIGHT HEADED. ASSISTED PATIENT BACK TO BED AND CHECKED FSBS 67 GAVE ORANGE JUICE WITH SUGAR, PEANUT BUTTER AND JOSE GUADALUPE CRACKERS. PATIENT STATES SHE ALREADY FEELS BETTER. WILL REASSESS FSBS.
[2020-01-09 04:00] VITALS: BP 105/62; BP 106/73
--- NOTE | 2020-01-09 04:08 | NUR ---
FSBS 148, PATIENT C/O BEING THIRST AND HUNGRY. PATIENT WAS WET, BED SOAKED. CHANGED LINENS. OFFERED PATIENT DIET COLA. CL IN REACH, BED LOCKED AND LOWERED. WILL CTM.
[2020-01-09 07:12] LABS: BASOPHILS 0.3 % (0-2); EOSINOPHILS 0.7 % (0-7); HEMATOCRIT 36.6 % (36.0-48.0); IMMATURE GRANULOCYTES 0.8 % (0-5); MCH 29.4 pg (26.0-34.0); MCHC 32.8 g/dL (31.0-37.0); MCV 89.7 fL (80.0-100.0); MEAN PLATELET VOLUME 9.5 fL (7.4-10.4); MONOCYTES 8.3 % (2-11); NEUTROPHILS 57.9 % (40-80); PLATELET COUNT 340 10x3/uL (130-400); RBC 4.08 10x6/uL (4.00-5.40); RDW 14.1 % (11.5-14.5); WBC 11.3 10x3/uL (4.8-10.8)
[2020-01-09 07:31] LABS: ANION GAP 13.9 mmol/L (8-16); CALCIUM 8.2 mg/dL (8.5-10.1); CARBON DIOXIDE 24.6 mmol/L (21.0-32.0); CREATININE - SERUM 0.9 mg/dL (0.6-1.3); MAGNESIUM - SERUM 1.7 mg/dL (1.8-2.4); PHOSPHOROUS 3.2 mg/dL (2.5-4.9); POTASSIUM - SERUM 4.5 mmol/L (3.5-5.1)
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
[2020-01-09 08:56] VITALS: BP 98/70
[2020-01-09] MEDS ORDERED: LEVOFLOXACIN500 MG PO (10:28)
--- NOTE | 2020-01-09 11:08 | NUR ---
IV AND TELEMETRY DCD. DC PLANS GIVEN. UNDERSTANDING VOICED. ESCORTED TO CAR BY W/C.
--- NOTE | 2020-01-09 11:20 | MORECARE ---
CASE MANAGEMENT DISCHARGE SUMMARY PATIENT: SANA FRANCISCO UNIT: [id number] ADM DATE: 01/06/20 AGE: 64 : 54 SEX: F ROOM/BED: D.9983 AUTHOR: GILLIAN,DOC PHYSICIAN: REFERRING PHYSICIAN: REGAN CONNORS MD DATE OF SERVICE: 01/09/20 Discharge Plan Patient Name: SANA FRANCISCO Facility: [facility]:[place] : 1955 Planned Disposition: Home or Self Care Anticipated Discharge Date: 01/09/20 Discharge Date: 01/09/2020 Expected LOS: 3 Initial Reviewer: [email or web address] Initial Review Date: 01/06/2020 Generated: 01/09/20 12:20 pm Comments DCP- Discharge Planning Updated by [id number]: Pearl Muñoz on 01/09/20 10:[address] CM met with patient regarding DC needs/plans. Patient is A/O and agrees to CM evaluation. Patient lives independently in her home, alone. PCP: None. Pharmacy: [facility]. DME from [facility]: O2, Trilogy, Pulse Ox, walker, Cane, Crutches. Emergency contact: Analisa Hernandez (dtr) [phone] drive patient home. Patient denies need for HHS, Rehab, SNF. Patient states she lives in a safe environment and her daughter will assist with her care, if needed. Denies being hospitalized within past 30 days. Voices no other needs at this time. provided for patient to locate a MD. DCP- Discharge Planning Updated by [id number]: Janna Leiva on 01/08/20 8:[address] CM was notified of Sandra/Pysch eval. CM called and faxed orders to [facility] for [facility]. DCPIA - Discharge Planning Initial Assessment Updated by [email or web address]: Pearl Muñoz on 01/09/20 11:18 am * Is the patient Alert and Oriented? Yes * How many steps to enter\exit or inside your home? 4 w/rails * PCP None * Pharmacy [facility] * Preadmission Environment Home Alone * ADLs Independent * Equipment BIPAP Cane Oxygen Rolling Walker * Other Equipment Trilogy Crutches * List name and contact numbers for known caregivers / representatives who currently or will assist patient after discharge: Analisa LirianoNeely (dtr) [phone] * Verbal permission to speak to the caregivers and representatives has been obtained from the patient. Yes * Community resources currently utilized None * Please name any agencies selected above. [facility] #[phone] * Additional services required to return to the preadmission environment? No * Can the patient safely return to the preadmission environment? Yes * Has this patient been hospitalized within the prior 30 days at any hospital? No Patient Name: SANA FRANCISCO Page [phone] at 1120 All edits/amendments must be made on the electronic document DICTATION DATE: 01/09/20 112 BALLER TENDER: CARLI 01/09/20 112 RPT#: [id number] DC DATE:01/09/20 STATUS: DIS IN [facility] [address] [place] [address] END OF REPORT
== END 2020-01-09 11:09 | disposition home or self-care (01) | DRG 642 ==
LOC: D.ER 13:56 → D.M2 17:08 → D.CVICU 17:08 → D.ICU 17:08 → D.CVICU 18:25 → D.ICU 20:37 → D.CVICU 21:40 → D.M2 01-08 14:05
PROVIDERS: Family Medicine; ADMIT Internal Medicine Nephrology; ATTEND Internal Medicine Nephrology
DX: E72.51 Non-ketotic hyperglycinemia (principal); G93.41 Metabolic encephalopathy; E87.1 Hypo-osmolality and hyponatremia; N39.0 Urinary tract infection, site not specified; E11.65 Type 2 diabetes mellitus with hyperglycemia; J43.9 Emphysema, unspecified; K21.9 Gastro-esophageal reflux disease without esophagitis; F32.9 Major depressive disorder, single episode, unspecified; F15.10 Other stimulant abuse, uncomplicated; D64.9 Anemia, unspecified; Z91.19 Patient's noncompliance with other medical treatment and regimen; F01.50 Vascular dementia, unspecified severity, without behavioral disturbance, psychotic disturbance, mood disturbance, and anxiety

== ENCOUNTER 2020-02-02 20:12 | Inpatient (IN) | payer MEDICARE ==
[~2020-02-02] VITALS: Ht 162.6 cm; Wt 52.4 kg
[~2020-02-02 20:12] MED LIST changes: +HUMALOG 30100 UNITS/ SC; +KLONOPIN1 MG PO; +LEVOFLOXACIN500 MG PO
[2020-02-02] MEDS ORDERED: GLUCOPHAGE500 MG PO (20:21)
[2020-02-02 20:48] LABS: BASOPHILS 0.1 % (0-2); EOSINOPHILS 0.1 % (0-7); HEMATOCRIT 40.6 % (36.0-48.0); HEMOGLOBIN 13.8 g/dL (12-16); LYMPHOCYTES 24.4 % (15-50); MCH 29.7 pg (26.0-34.0); MCV 87.5 fL (80.0-100.0); MEAN PLATELET VOLUME 9.8 fL (7.4-10.4); MONOCYTES 10.9 % (2-11); NEUTROPHILS 63.5 % (40-80); PLATELET COUNT 367 10x3/uL (130-400); RBC 4.64 10x6/uL (4.00-5.40); RDW 13.5 % (11.5-14.5); WBC 16.3 10x3/uL (4.8-10.8)
[2020-02-02 20:56] LABS: ANION GAP 13.2 mmol/L (8-16); CALCIUM 8.9 mg/dL (8.5-10.1); CARBON DIOXIDE 26.3 mmol/L (21.0-32.0); CREATININE - SERUM 1.5 mg/dL (0.6-1.3); POTASSIUM - SERUM 3.5 mmol/L (3.5-5.1)
[2020-02-02 21:02] LABS: ALBUMIN 3.4 g/dL (3.4-5.0); BILIRUBIN - TOTAL 0.3 mg/dL (0.2-1.3); MAGNESIUM - SERUM 1.8 mg/dL (1.8-2.4); PROTEIN - SERUM 8.1 g/dL (6.4-8.2)
[2020-02-02 21:11] LABS: BILIRUBIN NEGATIVE (NEGATIVE); GLUCOSE 1000 mg/dL (NEGATIVE); KETONE NEGATIVE (NEGATIVE); NITRITE NEGATIVE (NEGATIVE); UROBILINOGEN NORMAL (NORMAL)
[2020-02-02 22:30] VITALS: BP 96/54
--- NOTE | 2020-02-02 22:40 | NUR ---
PT C/O MUSCLE CRAMPS IN FOOT AND CALF. ORDER OBTAINED FOR ATIVAN 1MG.
--- NOTE | 2020-02-02 23:08 | NUR ---
RESTING QUIETLY- AWAITING ON RIDE HOME.
[2020-02-02 23:40] VITALS: BP 90/50
--- NOTE | 2020-02-02 23:40 | NUR ---
IN ROOM TO DC PT HOME. PT VERY LETHARGIC AND HARD TO AROUSE. WILL NOT FOLLOW DIRECTIONS.
[2020-02-03] VITALS (10 sets, daily range): BP systolic 78–144; BP diastolic 47–85; BMI 18.4
--- NOTE | 2020-02-03 00:03 | NUR ---
INITIAL RECHECK OF FSBS WAS 76. PT REMAINS LETHARGIC. RECHECKED BLOOD SUGAR AND NOTED TO BE 56. ORDER OBTAINED FOR D50W.
[2020-02-03 00:05] LABS: UDS - AMPHET NEGATIVE QUAL (NEGATIVE); UDS - BARB NEGATIVE QUAL (NEGATIVE); UDS - BENZO NEGATIVE QUAL (NEGATIVE); UDS - COCAINE NEGATIVE QUAL (NEGATIVE); UDS - OPIATE NEGATIVE QUAL (NEGATIVE); UDS - PCP NEGATIVE QUAL (NEGATIVE); UDS - THC NEGATIVE QUAL (NEGATIVE)
--- NOTE | 2020-02-03 00:10 | NUR ---
PT REMAINS LETHARGIC AFTER D50W ADMIN.
--- NOTE | 2020-02-03 00:50 | NUR ---
PT REMAINS LETHARGIC AND HYPOTENSIVE AFTER 500ML NS BOLUS. ED PHYSICIAN NOTIFIED. WILL CONTINUE TO MONITOR.
--- NOTE | 2020-02-03 02:58 | NUR ---
PT ARRIVED TO ROOM VIA STRETCHER. LETHARGIC BUT RESPONDS AFTER LOUD VERBAL STIMULI. PROVIDED INCONT. CARE. NO FURTHER NEEDS EXPRESSED. ENCOURAGED USE OF CALL LIGHT FOR ASSISTANCE. CALL LIGHT IN REACH. WILL CPOC.
--- NOTE | 2020-02-03 07:20 | NUR ---
RECIEVE REPORT. ALERT AND ORIENTED X4. SITTING UP IN BED. LINENS SOILED. BED CHANGE COMPLETE. DENIES ANY OTHER NEEDS. CONTINUE PLAN OF CARE AND SAFETY PRECAUTIONS.
[2020-02-03 14:15] LABS: ALBUMIN 2.8 g/dL (3.4-5.0); ANION GAP 17.7 mmol/L (8-16); BILIRUBIN - TOTAL 0.22 mg/dL (0.2-1.3); CARBON DIOXIDE 21.7 mmol/L (21.0-32.0); CREATININE - SERUM 1.2 mg/dL (0.6-1.3); MAGNESIUM - SERUM 1.6 mg/dL (1.8-2.4); POTASSIUM - SERUM 3.4 mmol/L (3.5-5.1); PROTEIN - SERUM 6.6 g/dL (6.4-8.2)
[2020-02-03 15:08] LABS: BASOPHILS 0.2 % (0-2); EOSINOPHILS 0.1 % (0-7); HEMATOCRIT 41.3 % (36.0-48.0); HEMOGLOBIN 13.7 g/dL (12-16); IMMATURE GRANULOCYTES 0.8 % (0-5); LYMPHOCYTES 16.8 % (15-50); MCH 29.7 pg (26.0-34.0); MCHC 33.2 g/dL (31.0-37.0); MCV 89.4 fL (80.0-100.0); MEAN PLATELET VOLUME 9.9 fL (7.4-10.4); MONOCYTES 8.8 % (2-11); NEUTROPHILS 73.3 % (40-80); PLATELET COUNT 328 10x3/uL (130-400); RBC 4.62 10x6/uL (4.00-5.40); RDW 13.9 % (11.5-14.5); WBC 15.7 10x3/uL (4.8-10.8)
--- NOTE | 2020-02-03 19:05 | NUR ---
REPORT RECEIVED, WILL CONTINUE POC. PATIENT IS RESTING WITH EYES, NO S/S OF DISTRESS OBSERVED, RR EVEN AND UNLABORED ON ROOM AIR. CL IN REACH, BED LOCKED AND LOWERED. WILL CTM.
[2020-02-03 20:04] LABS: APTT 26.2 SECONDS (22.8-39.4); INR 0.9 (0.85-1.17); PROTIME 12.1 SECONDS (11.6-15.0)
[2020-02-04] VITALS: BP 91/48
--- NOTE | 2020-02-04 03:28 | NUR ---
I have reviewed this patient and I concur with the Shift Assessment completed by the Licensed Practical Nurse today this shift.
[2020-02-04 04:00] VITALS: BP 95/57
[2020-02-04 06:36] LABS: BASOPHILS 0.1 % (0-2); EOSINOPHILS 0.5 % (0-7); HEMATOCRIT 36.8 % (36.0-48.0); IMMATURE GRANULOCYTES 0.7 % (0-5); LYMPHOCYTES 28.8 % (15-50); MCH 28.9 pg (26.0-34.0); MCHC 32.6 g/dL (31.0-37.0); MCV 88.7 fL (80.0-100.0); MEAN PLATELET VOLUME 9.9 fL (7.4-10.4); MONOCYTES 11.5 % (2-11); NEUTROPHILS 58.4 % (40-80); PLATELET COUNT 303 10x3/uL (130-400); RBC 4.15 10x6/uL (4.00-5.40); RDW 13.9 % (11.5-14.5); WBC 13.6 10x3/uL (4.8-10.8)
--- NOTE | 2020-02-04 07:00 | NUR ---
RECEIVED REPORT. ASSUMED CARE OF PATIENT. PATIENT RESTING WELL WITH EYES CLOSED. RESP EVEN AND UNLABORED. PATIENT ST ON TELEMETRY, RATE 101. BEDSIDE SHIFT COMPLETED, WHITE BOARD UPDATED. NO DISTRESS. CALL LIGHT WITHIN REACH.
--- NOTE | 2020-02-04 07:16 | NUR ---
FRESH ICE WATER PROVIDED REQUESTED.
[2020-02-04 07:19] LABS: ALBUMIN 2.6 g/dL (3.4-5.0); ALKALINE PHOSPHATASE 132 U/L (30-120); ALT (SGPT) 16 U/L (10-68); BILIRUBIN - TOTAL 0.37 mg/dL (0.2-1.3); CALCIUM 7.9 mg/dL (8.5-10.1); CARBON DIOXIDE 23.7 mmol/L (21.0-32.0); CHLORIDE - SERUM 101 mmol/L (98-107); MAGNESIUM - SERUM 1.5 mg/dL (1.8-2.4); POTASSIUM - SERUM 3.3 mmol/L (3.5-5.1); SODIUM 135 mmol/L (136-145); eGFR NON AFRICAN AMERICAN 76 mL/min (90-120)
[2020-02-04 07:21] LABS: CALC OSMOLALITY 275 mosm/kg (275-300); CREATININE - SERUM 0.8 mg/dL (0.6-1.3); GLUCOSE 226 mg/dL (74-106); UREA NITROGEN 9 mg/dL (7-18)
[2020-02-04 09:41] VITALS: BP 107/71
--- NOTE | 2020-02-04 11:51 | NUR ---
FSBS 296. 6 UNITS HUMULIN INSULIN ADMINISTERED PER SLIDING SCALE.
--- NOTE | 2020-02-04 11:57 | NUR ---
PATIENT IS CRYING TO EAT SOMETHING OTHER THAN CLEAR LIQUIDS. HAVE REACHED OUT TO PRIMARY CARE FOR ORDERS TO ADVANCE DIET, NO ORDERS AT THIS TIME BUT DIET IS BEING ADDRESSED.
[2020-02-04 13:32] VITALS: BP 104/71
[2020-02-04 13:36] VITALS: Ht 162.6 cm; Wt 52.4 kg
--- NOTE | 2020-02-04 16:25 | NUR ---
FSBS 131. 8 UNITS HUMULIN ADMINISTERED PER SLIDING SCALE.
[2020-02-04 17:09] VITALS: BP 108/74
--- NOTE | 2020-02-04 19:13 | NUR ---
RECEIVED BEDSIDE REPORT. PATIENT IS ALERT AND ORIENTED, RESTING COMFORTABLY IN BED. RESPIRATIONS ARE EVEN AND UNLABORED. NO S/S OF DISTRESS. NO C/O PAIN. CALL LIGHT WITHIN REACH. WILL CPOC.
[2020-02-04 20:00] VITALS: BP 121/92
[2020-02-05] VITALS: BP 101/64
[2020-02-05 04:00] VITALS: BP 103/73
[2020-02-05 06:10] LABS: BASOPHILS 0.2 % (0-2); EOSINOPHILS 1.2 % (0-7); HEMATOCRIT 35.8 % (36.0-48.0); HEMOGLOBIN 11.9 g/dL (12-16); IMMATURE GRANULOCYTES 1.2 % (0-5); LYMPHOCYTES 34.8 % (15-50); MCH 29.5 pg (26.0-34.0); MCHC 33.2 g/dL (31.0-37.0); MCV 88.8 fL (80.0-100.0); MEAN PLATELET VOLUME 9.8 fL (7.4-10.4); MONOCYTES 12.7 % (2-11); NEUTROPHILS 49.9 % (40-80); PLATELET COUNT 309 10x3/uL (130-400); RBC 4.03 10x6/uL (4.00-5.40); RDW 13.9 % (11.5-14.5); WBC 13.8 10x3/uL (4.8-10.8)
[2020-02-05 07:00] LABS: ALBUMIN 2.5 g/dL (3.4-5.0); ALKALINE PHOSPHATASE 135 U/L (30-120); ALT (SGPT) 17 U/L (10-68); BILIRUBIN - TOTAL 0.24 mg/dL (0.2-1.3); CALCIUM 8.1 mg/dL (8.5-10.1); CARBON DIOXIDE 21.3 mmol/L (21.0-32.0); CHLORIDE - SERUM 102 mmol/L (98-107); CREATININE - SERUM 0.8 mg/dL (0.6-1.3); MAGNESIUM - SERUM 1.6 mg/dL (1.8-2.4); PROTEIN - SERUM 5.9 g/dL (6.4-8.2); SODIUM 133 mmol/L (136-145); eGFR NON AFRICAN AMERICAN 76 mL/min (90-120)
[2020-02-05 07:12] LABS: CALC OSMOLALITY 276 mosm/kg (275-300); GLUCOSE 304 mg/dL (74-106); POTASSIUM - SERUM 4.4 mmol/L (3.5-5.1); UREA NITROGEN 12 mg/dL (7-18)
--- NOTE | 2020-02-05 07:20 | NUR ---
RECIEVE REPORT. SITTING UP IN BED. ALERT AND ORIENTED X4. DENIES ANY NEEDS. CONTINUE PLAN OF CARE AND SAFETY PRECAUTIONS.
[2020-02-05 09:00] VITALS: BP 96/69
--- NOTE | 2020-02-05 10:40 | MORECARE ---
CASE MANAGEMENT DISCHARGE SUMMARY PATIENT: SANA FRANCISCO UNIT: [id number] ADM DATE: 02/03/20 AGE: 64 : 53 SEX: F ROOM/BED: D.2113 AUTHOR: KIM FRENCH PHYSICIAN: REFERRING PHYSICIAN: GERRY CARVAJAL MD DATE OF SERVICE: 02/05/20 Discharge Plan Patient Name: SANA FRANCISCO [facility] [facility] 1955 Planned Disposition: Home Anticipated Discharge Date: 02/05/20 Discharge Date: Expected LOS: 2 Initial Reviewer: [email or web address] Initial Review Date: 02/05/2020 Generated: 02/05/20 11:39 am External Providers External Provider: [facility] Next Contact Date: Service Request Date: Service Type: Resolution: Reviewer: Comments: Coverage Notice Reviewer: NEVIN Stark Notice Issued Date-Time: 02/05/2020 10:23 Notice Type: IM Discharge Notice Notice Delivered To: Patient Relationship to Patient: Self Automation Operator Name: Delivery Method: HAND - Hand Delivered Beronica Days: Prior Verbal Notification: Recipient Understood Notice: Yes Recipient Signature: Yes Med Rec Note Co-signed by Attending: Coverage Notice Comment: IMM explained, signed, given, copy placed in MR Reviewer: [id number] Stark Notice Issued Date-Time: 02/05/2020 10:23 Notice Type: Patient Choice Letter Notice Delivered To: Patient Relationship to Patient: Self Automation Operator Name: Delivery Method: - Beronica Days: Prior Verbal Notification: Recipient Understood Notice: Recipient Signature: Med Rec Note Co-signed by Attending: Coverage Notice Comment: Patient Name: SANA FRANCISCO Page [phone] at 1040 All edits/amendments must be made on the electronic document DICTATION DATE: 02/05/20 1039 ADOPTION MANAGER: CARLI 02/05/20 1039 RPT#: [id number] DC DATE: STATUS: ADM IN [facility] [address] [place] [address] END OF REPORT
--- NOTE | 2020-02-05 11:14 | MORECARE ---
CASE MANAGEMENT DISCHARGE SUMMARY PATIENT: SANA FRANCISCO UNIT: [id number] ADM DATE: 02/03/20 AGE: 64 : 53 SEX: F ROOM/BED: D.[facility] [place] AUTHOR: GILLIAN,DOC PHYSICIAN: REFERRING PHYSICIAN: GERRY CARVAJAL MD DATE OF SERVICE: 02/05/20 Discharge Plan Patient Name: SANA FRANCISCO Facility: [facility]:[place] : 1955 Planned Disposition: Home Anticipated Discharge Date: 02/05/20 Discharge Date: Expected LOS: 2 Initial Reviewer: [id number] Initial Review Date: 02/05/2020 Generated: 02/05/20 12:14 pm DCPIA - Discharge Planning Initial Assessment Updated by NEVIN: Nano Stark on 02/05/20 11:13 am * Is the patient Alert and Oriented? Yes * PCP [facility] * Pharmacy [facility] * Preadmission Environment Home with Family * ADLs Partial Dependent * Partial ADLs (Assistance needed) Ambulation * Equipment Cane CPAP Crutch Glucometer Other Oxygen Rolling Walker * Other Equipment Trilogy portable oxygen pulse oximeter * List name and contact numbers for known caregivers / representatives who currently or will assist patient after discharge: Analisa Hope - DTR - [phone] Stormy Jabier - friend * Verbal permission to speak to the caregivers and representatives has been obtained from the patient. Yes * Community resources currently utilized None * Please name any agencies selected above. [facility] for oxygen [facility] for walker * Additional services required to return to the preadmission environment? No * Can the patient safely return to the preadmission environment? Yes * Has this patient been hospitalized within the prior 30 days at any hospital? No Coverage Notice Reviewer: [id number] Tia Stark Notice Issued Date-Time: 02/05/2020 10:23 Notice Type: IM Discharge Notice Notice Delivered To: Patient Relationship to Patient: Self Education Program Associate Name: Delivery Method: HAND - Hand Delivered Beronica Days: Prior Verbal Notification: Recipient Understood Notice: Yes Recipient Signature: Yes Med Rec Note Co-signed by Attending: Coverage Notice Comment: IMM explained, signed, given, copy placed in MR Reviewer: [id number] Stark Notice Issued Date-Time: 02/05/2020 10:23 Notice Type: Patient Choice Letter Notice Delivered To: Patient Relationship to Patient: Self Education Program Associate Name: Delivery Method: - Beronica Days: Prior Verbal Notification: Recipient Understood Notice: Recipient Signature: Med Rec Note Co-signed by Attending: Coverage Notice Comment: Last DP export: 02/05/20 9:40 am Patient Name: SANA FRANCISCO Page [id number] at 1114 All edits/amendments must be made on the electronic document DICTATION DATE: 02/05/20 1114 CARGO MATE: CARLI 02/05/20 1114 RPT#: [id number] MA DATE: STATUS: ADM IN [facility] [address] [place] [address] END OF REPORT
--- NOTE | 2020-02-05 11:21 | MORECARE ---
CASE MANAGEMENT DISCHARGE SUMMARY PATIENT: SANA FRANCISCO UNIT: [id number] ADM DATE: 02/03/20 AGE: 64 : 53 SEX: F ROOM/BED: D.3107 AUTHOR: KIM FRENCH PHYSICIAN: REFERRING PHYSICIAN: GERRY CARVAJAL MD DATE OF SERVICE: 02/05/20 Discharge Plan Patient Name: SANA FRANCISCO Facility: [facility]:[place] : 1955 Planned Disposition: Home Anticipated Discharge Date: 02/05/20 Discharge Date: Expected LOS: 2 Initial Reviewer: [id number] Initial Review Date: 02/05/2020 Generated: 02/05/20 12:21 pm Comments DCP- Discharge Planning Updated by [email or web address]: Nano Stark on 02/05/20 10:[address] Patient Name: SANA FRANCISCO Admission Status: ER Accout number: [id number] Admission Date: 02-03-2020 : 1955 Admission Diagnosis:ALTERED MENTAL STATUS, UNSPECIFIED Attending: JILL CARVAJAL Current LOS: 2 Anticipated DC Date: 02-05-2020 Planned Disposition: Home Primary Insurance: [employer] MEDICARE ADV Discharge Planning Comments: CM met with patient to complete initial dc planning assessment. CM educated patient on the CM role and verbal consent given by patient to complete assessment. Patient lives at home with her friend, Stormy Li. At discharge patient plans to return and feels this is a safe discharge. CM discussed availability of home health, rehab services, and medical equipment. Patient declines home health. States she would like a walker with a seat. I called [employer] and spoke with Rand. Patient agrees to 22 dollar copay. 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 States her daughter will transport her home. States she checks her blood sugar 4 times a day at home and follows a sliding scale. States she has access to her insulin. CM will continue to follow and will assist as needed with dc plans/needs. Lumber Racker: Nano Stark DCPIA - Discharge Planning Initial Assessment Updated by [email or web address]: Nano Stark on 02/05/20 11:13 am * Is the patient Alert and Oriented? Yes * PCP [facility] * Pharmacy [facility] * Preadmission Environment Home with Family * ADLs Partial Dependent * Partial ADLs (Assistance needed) Ambulation * Equipment Cane CPAP Crutch Glucometer Other Oxygen Rolling Walker * Other Equipment Trilogy portable oxygen pulse oximeter * List name and contact numbers for known caregivers / representatives who currently or will assist patient after discharge: Analisa Hope - R - [phone] Stormy Jabier - friend * Verbal permission to speak to the caregivers and representatives has been obtained from the patient. Yes * Community resources currently utilized None * Please name any agencies selected above. [facility] for oxygen [facility] for walker * Additional services required to return to the preadmission environment? No * Can the patient safely return to the preadmission environment? Yes * Has this patient been hospitalized within the prior 30 days at any hospital? No Coverage Notice Reviewer: [id number] Tia Stark Notice Issued Date-Time: 02/05/2020 10:23 Notice Type: IM Discharge Notice Notice Delivered To: Patient Relationship to Patient: Self Spool Cleaner Name: Delivery Method: HAND - Hand Delivered Beronica Days: Prior Verbal Notification: Recipient Understood Notice: Yes Recipient Signature: Yes Med Rec Note Co-signed by Attending: Coverage Notice Comment: IMM explained, signed, given, copy placed in MR Reviewer: [id number] Tia Stark Notice Issued Date-Time: 02/05/2020 10:23 Notice Type: Patient Choice Letter Notice Delivered To: Patient Relationship to Patient: Self Spool Cleaner Name: Delivery Method: - Beronica Days: Prior Verbal Notification: Recipient Understood Notice: Recipient Signature: Med Rec Note Co-signed by Attending: Coverage Notice Comment: Last DP export: 02/05/20 10:14 am Patient Name: SANA FRANCISCO Page 18003 at 1121 All edits/amendments must be made on the electronic document DICTATION DATE: 02/05/20 1121 CASINO SURVEILLANCE OFFICER: CARLI 02/05/20 1121 RPT#: [id number] DC DATE: STATUS: ADM IN [facility] [address] [place] [address] END OF REPORT
[2020-02-05] MEDS ORDERED: LANTUS INS100 UNITS/ SC (11:29)
--- NOTE | 2020-02-05 12:10 | MORECARE ---
CASE MANAGEMENT DISCHARGE SUMMARY PATIENT: SANA FRANCISCO UNIT: [id number] ADM DATE: 02/03/20 AGE: 64 : 53 SEX: F ROOM/BED: D.8543 AUTHOR: KIM FRENCH PHYSICIAN: REFERRING PHYSICIAN: GERRY CARVAJAL MD DATE OF SERVICE: 02/05/20 Discharge Plan Patient Name: SANA FRANCISCO Facility: [facility]:[place] : 1955 Planned Disposition: Home Anticipated Discharge Date: 02/05/20 Discharge Date: Expected LOS: 2 Initial Reviewer: [id number] Initial Review Date: 02/05/2020 Generated: 02/05/20 1:10 pm Comments DCP- Discharge Planning Updated by [email or web address]: Nano Stark on 02/05/20 11:[address] Patient Name: SANA FRANCISCO Encounter No: [id number] : 1955 Primary Insurance: WELL[employer] MEDICARE ADV Anticipated DC Date: 02-05-2020 Planned Disposition: Home External Planned Provider: : DCP follow-up note: Patient in agreement with discharge plan. No changes to plan. Case management will follow and assist as needed. Nano Stark DCP- Discharge Planning Updated by [email or web address]: Nano Stark on 02/05/20 10:[address] Patient Name: SANA FRANCISCO Admission Status: ER Accout number: [id number] Admission Date: 02-03-2020 : 1955 Admission Diagnosis:ALTERED MENTAL STATUS, UNSPECIFIED Attending: JILL CARVAJAL Current LOS: 2 Anticipated DC Date: 02-05-2020 Planned Disposition: Home Primary Insurance: [employer] MEDIC[employer] ADV Discharge Planning Comments: CM met with patient to complete initial dc planning assessment. CM educated patient on the CM role and verbal consent given by patient to complete assessment. Patient lives at home with her friend, Stormy Li. At discharge patient plans to return and feels this is a safe discharge. CM discussed availability of home health, rehab services, and medical equipment. Patient declines home health. States she would like a walker with a seat. I called [employer] [facility] [facility] and spoke with Rand. Patient agrees to 22 dollar copay. 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 States her daughter will transport her home. States she checks her blood sugar 4 times a day at home and follows a sliding scale. States she has access to her insulin. CM will continue to follow and will assist as needed with dc plans/needs. Solar Energy Sales Specialist: Nano Boykineliud DCPIA - Discharge Planning Initial Assessment Updated by [email or web address]: Nano Stark on 02/05/20 11:13 am * Is the patient Alert and Oriented? Yes * PCP [facility] * Pharmacy [facility] * Preadmission Environment Home with Family * ADLs Partial Dependent * Partial ADLs (Assistance needed) Ambulation * Equipment Cane CPAP Crutch Glucometer Other Oxygen Rolling Walker * Other Equipment Trilogy portable oxygen pulse oximeter * List name and contact numbers for known caregivers / representatives who currently or will assist patient after discharge: Analisa Hope - DTR - [phone] Stormy Eugene - friend * Verbal permission to speak to the caregivers and representatives has been obtained from the patient. Yes * Community resources currently utilized None * Please name any agencies selected above. [facility] for oxygen [facility] for walker * Additional services required to return to the preadmission environment? No * Can the patient safely return to the preadmission environment? Yes * Has this patient been hospitalized within the prior 30 days at any hospital? No Coverage Notice Reviewer: [id number] Tia Stark Notice Issued Date-Time: 02/05/2020 10:23 Notice Type: IM Discharge Notice Notice Delivered To: Patient Relationship to Patient: Self Wire Machine Operator Name: Delivery Method: HAND - Hand Delivered Beronica Days: Prior Verbal Notification: Recipient Understood Notice: Yes Recipient Signature: Yes Med Rec Note Co-signed by Attending: Coverage Notice Comment: IMM explained, signed, given, copy placed in MR Reviewer: [id number] Tia Stark Notice Issued Date-Time: 02/05/2020 10:23 Notice Type: Patient Choice Letter Notice Delivered To: Patient Relationship to Patient: Self Wire Machine Operator Name: Delivery Method: - Beronica Days: Prior Verbal Notification: Recipient Understood Notice: Recipient Signature: Med Rec Note Co-signed by Attending: Coverage Notice Comment: Last DP export: 02/05/20 10:21 am Patient Name: SANA FRANCISCO Page [id number] at 1210 All edits/amendments must be made on the electronic document DICTATION DATE: 02/05/20 1210 TREE FRUIT AND NUT CROPS FARMER: CARLI 02/05/20 1210 RPT#: [id number] DC DATE: STATUS: ADM IN [facility] [address] [place] [address] END OF REPORT
--- NOTE | 2020-02-05 14:25 | NUR ---
ALERT AND ORIENTED X4. SITTING UP IN BED. DC RT FA IV TIP INTACT. DISCHARGE INSTRUCTIONS GIVEN VERBALLY AND WRITTEN. DISCHARGE PAPERS SIGNED ON CHART. ESCORT TO RIDE VIA WHEELCHAIR. REMAINS FREE FROM INJURY.
--- NOTE | 2020-02-06 07:38 | MORECARE ---
CASE MANAGEMENT DISCHARGE SUMMARY PATIENT: SANA FRANCISCO UNIT: [id number] ADM DATE: 02/03/20 AGE: 64 : 53 SEX: F ROOM/BED: D.0523 AUTHOR: GILLIAN,DOC PHYSICIAN: REFERRING PHYSICIAN: GERRY CARVAJAL MD DATE OF SERVICE: 02/06/20 Discharge Plan Patient Name: SANA FRANCISCO Facility: [facility]:[place] : 1955 Planned Disposition: Home Anticipated Discharge Date: 02/05/20 Discharge Date: 02/05/2020 Expected LOS: 2 Initial Reviewer: [email or web address] Initial Review Date: 02/05/2020 Generated: 02/06/20 8:37 am Comments DCP- Discharge Planning Updated by [email or web address]: Nano Stark on 02/05/20 11:[address] Patient Name: SANA FRANCISCO Encounter No: [id number] : 1955 Primary Insurance: WELL[employer] MEDICARE ADV Anticipated DC Date: 02-05-2020 Planned Disposition: Home External Planned Provider: : DCP follow-up note: Patient in agreement with discharge plan. No changes to plan. Case management will follow and assist as needed. Nano Stark DCP- Discharge Planning Updated by [email or web address]: Nano Stark on 02/05/20 10:[address] Patient Name: SANA FRANCISCO Admission Status: ER Accout number: [id number] Admission Date: 02-03-2020 : 1955 Admission Diagnosis:ALTERED MENTAL STATUS, UNSPECIFIED Attending: JILL CARVAJAL Current LOS: 2 Anticipated DC Date: 02-05-2020 Planned Disposition: Home Primary Insurance: WELL[employer] MEDICARE ADV Discharge Planning Comments: CM met with patient to complete initial dc planning assessment. CM educated patient on the CM role and verbal consent given by patient to complete assessment. Patient lives at home with her friend, Stormy Li. At discharge patient plans to return and feels this is a safe discharge. CM discussed availability of home health, rehab services, and medical equipment. Patient declines home health. States she would like a walker with a seat. I called [employer] and spoke with Rand. Patient agrees to 22 dollar copay. Patient states she will sweet pickled fruit maker walker on her way home. States her daughter will transport her home. States she checks her blood sugar 4 times a day at home and follows a sliding scale. States she has access to her insulin. CM will continue to follow and will assist as needed with dc plans/needs. Naval Aircrewman Mechanical: Nano Stark DCPIA - Discharge Planning Initial Assessment Updated by [email or web address]: Nano Stark on 02/05/20 11:13 am * Is the patient Alert and Oriented? Yes * [facility] * Pharmacy [facility] * Preadmission Environment Home with Family * ADLs Partial Dependent * Partial ADLs (Assistance needed) Ambulation * Equipment Cane CPAP Crutch Glucometer Other Oxygen Rolling Walker * Other Equipment Trilogy portable oxygen pulse oximeter * List name and contact numbers for known caregivers / representatives who currently or will assist patient after discharge: Analisa Hope - DTR - [phone] Stormy Eugene - friend * Verbal permission to speak to the caregivers and representatives has been obtained from the patient. Yes * Community resources currently utilized None * Please name any agencies selected above. [facility] for oxygen [facility] for walker * Additional services required to return to the preadmission environment? No * Can the patient safely return to the preadmission environment? Yes * Has this patient been hospitalized within the prior 30 days at any hospital? No Coverage Notice Reviewer: [id number] Tia Stark Notice Issued Date-Time: 02/05/2020 10:23 Notice Type: IM Discharge Notice Notice Delivered To: Patient Relationship to Patient: Self Robot Designer Name: Delivery Method: HAND - Hand Delivered Beronica Days: Prior Verbal Notification: Recipient Understood Notice: Yes Recipient Signature: Yes Med Rec Note Co-signed by Attending: Coverage Notice Comment: IMM explained, signed, given, copy placed in MR Reviewer: [id number] Tia Barneyy Lincoln Notice Issued Date-Time: 02/05/2020 10:23 Notice Type: Patient Choice Letter Notice Delivered To: Patient Relationship to Patient: Self Robot Designer Name: Delivery Method: - Beronica Days: Prior Verbal Notification: Recipient Understood Notice: Recipient Signature: Med Rec Note Co-signed by Attending: Coverage Notice Comment: Last DP export: 02/05/20 11:10 am Patient Name: SANA FRANCISCO Page 14656 at 0738 All edits/amendments must be made on the electronic document DICTATION DATE: 02/06/20736 DIRECTOR OF CAMPUS RECREATION: CARLI 02/06/2037 RPT#: [id number] DC DATE:02/05/20 STATUS: DIS IN [facility] [address] [place] [address] END OF REPORT
== END 2020-02-05 14:27 | disposition home or self-care (01) | DRG 637 ==
LOC: D.ER 20:12 → D.M2 02-03 02:18 → OBSVTIME 02-03 02:18 → D.M2 02-03 16:03
PROVIDERS: Family Medicine; ADMIT Emergency Medicine; ATTEND Emergency Medicine
DX: E11.65 Type 2 diabetes mellitus with hyperglycemia (principal); R40.2123 Coma scale, eyes open, to pain, at hospital admission; E87.1 Hypo-osmolality and hyponatremia; N17.9 Acute kidney failure, unspecified; E87.6 Hypokalemia; E11.40 Type 2 diabetes mellitus with diabetic neuropathy, unspecified; R41.82 Altered mental status, unspecified; E86.0 Dehydration; R40.2353 Coma scale, best motor response, localizes pain, at hospital admission; R40.2253 Coma scale, best verbal response, oriented, at hospital admission; J43.9 Emphysema, unspecified; Z87.891 Personal history of nicotine dependence

== ENCOUNTER → 2021-02-25 18:10 | Outpatient (CLI) | payer MEDICARE ==
[2020-02-04 13:36] VITALS: BMI 18.3
[~2021-02-25 18:10] MED LIST changes: +GLUCOPHAGE500 MG PO; +LANTUS INS100 UNITS/ SC
[2021-02-25 18:45] LABS: BASOPHILS 0.6 % (0-2); EOSINOPHILS 2.8 % (0-7); HEMOGLOBIN 10.2 g/dL (12-16); LYMPHOCYTES 35.8 % (15-50); MCH 29.5 pg (26.0-34.0); MCHC 31.8 g/dL (31.0-37.0); MCV 92.9 fL (80.0-100.0); MEAN PLATELET VOLUME 6.8 fL (7.4-10.4); MONOCYTES 8.7 % (2-11); NEUTROPHILS 52.1 % (40-80); RBC 3.45 10x6/uL (4.00-5.40); RDW 16.5 % (11.5-14.5); WBC 9.4 10x3/uL (4.8-10.8)
[2021-02-25 18:48] LABS: PLATELET COUNT 595 10x3/uL (130-400)
[2021-02-25 19:21] LABS: ALBUMIN 3.6 g/dL (3.4-5.0); BILIRUBIN - TOTAL 0.25 mg/dL (0.2-1.3); CALCIUM 9.1 mg/dL (8.5-10.1); CARBON DIOXIDE 25.8 mmol/L (21.0-32.0); CHOL - HDL RATIO 1.6 ratio (2.3-4.1); LDL-HDL RATIO 0.5 ratio (1.5-3.5); POTASSIUM - SERUM 4.8 mmol/L (3.5-5.1); PROTEIN - SERUM 7.9 g/dL (6.4-8.2)
== END | disposition home or self-care (01) ==
LOC: D.LABREF 18:10
PROVIDERS: ATTEND Family Medicine
DX: J44.9 Chronic obstructive pulmonary disease, unspecified (principal); E11.65 Type 2 diabetes mellitus with hyperglycemia; I50.9 Heart failure, unspecified; D64.9 Anemia, unspecified